=== PATIENT | male | born 1980 | race Caucasian/White ===

== ENCOUNTER 2018-03-01 16:41 | Emergency (ER) | payer OTHER ==
--- NOTE | 2018-03-01 16:50 | PDOC ---
Rapid Medical Evaluation Chief Complaint: Pain Time Seen by Provider: 03/01/18 16:44 Medical Evaluation: Allergies Allergy/AdvReac Type Severity Reaction Status Date / Time No Known Allergies Allergy Unverified 02/11/14 10:18 03/01/18 16:45 I have performed a brief in-person evaluation of this patient. The patient presents with a chief complaint of: fevers x 5 days, NIDDM and rash - not taking meds x 4-5 days, has not checked BS as ranout of strips Pertinent physical exam findings: mult discrete lesions over all of body. Pale/ cobb appears malaisic I have ordered the following: CBC, Cmp, Acetone, The patient will proceed to the ED for further evaluation. 03/01/18 16:50 03/01/18 16:51
[2018-03-01 16:51] VITALS: BP 108/66; PULSE 86; TEMP 99.6; BMI 28.1
--- NOTE | 2018-03-01 17:32 | PDOC ---
Attending Attestation - Resident Resident Name: Milagro Hunter - ED Attending Attestation I have performed the following: I have examined & evaluated the patient, The case was reviewed & discussed with the resident, I agree w/resident's findings & plan, Exceptions are as noted - HPI HPI: 03/01/18 17:47 37y M hx of IDDM presents with subjective fever for several days followed by a vesicular itchy rash the pst 2 days. Sister recently dx with zoster. Pt notes he never had vaccinations for chicken pox and never hd chicken pox itself. pt denies any headache, dizziness, n/v, back pain, neck pain, cp. pt does endorse epigastric burning after eating fatty and greasy foods for several weeks. denies sob, and pain is non exertional. - Physicial Exam PE: 03/01/18 18:19 GENERAL: The patient is awake, alert, and fully oriented, Nontoxic - in no acute distress. HEAD: Normocephalic, atraumatic. EYES: extraocular movements intact, sclera anicteric, conjunctiva clear. ENT: Normal voice, Moist mucous membranes. NECK: Normal range of motion, supple LUNGS: Breath sounds equal, clear to auscultation bilaterally. No wheezes, no rhonchi, no rales. HEART: Regular rate and rhythm, normal S1 and S2 without murmur, rub or gallop. ABDOMEN: Soft, nontender, normoactive bowel sounds. No guarding, no rebound. . No CVA tenderness EXTREMITIES: Normal range of motion, no edema. No clubbing or cyanosis. No cords, erythema, or tenderness. NEUROLOGICAL: No facial assymetry, Normal speech, PSYCH: Normal mood, normal affect. SKIN: Warm, Dry, normal turgor, multiple erythemsou lesions/excorations, a few intact vesicular lesions on erythemaous base - Medical Decision Making 03/01/18 18:20 suspect his rash is chicken pox will terat supportively no signs of encephalopathy or meningitus no , infirm or elderly people at home, there is a child who has recived their vaccinations. suspect his epgiastric pain is gerd - will give protonix, made some dietary [id number] will obtain ekg to screen for acs, although does not seem consistent Heart Score/ECG Review - ECG Impressions Comment:: 03/01/18 18:20 Twelve-lead EKG was performed and reviewed by me. There is normal sinus rhythm with a normal rate. The axis is normal. The intervals are normal. There is normal R wave progression There are no ST or T wave abnormalities. Impression: Normal twelve-lead EKG
[2018-03-01] MEDS ORDERED: diphenhydrAMINE HCL 25 MG CAPSULE (FP) PO ONE ×2 (17:35→17:50)
[2018-03-01] MEDS ORDERED: PANTOPRAZOLE 40 MG TABLET (FP) PO ONE (17:36)
--- NOTE | 2018-03-01 17:43 | PDOC ---
History of Present Illness - General Chief Complaint: Pain Stated Complaint: STOMACH PAIN/FEVER Time Seen by Provider: 03/01/18 16:44 History Source: Patient Exam Limitations: No Limitations - History of Present Illness Initial Comments: 03/01/18 17:38 This is a 37 year old male with a a history of DMII, back pain, who presents with reported fever at home for three days and diffuse, pruritic body rash since yesterday. Rash spares palms and soles. Vesicles, in different stages of healing. Patient also endorses non radiating, burning mid epigastric pain, worse with spicy foods for the past two weeks. Denies chest pain, sob, cough, sputum production, n, v, d, leg swelling. Patient states that his sister has the same symptoms with rash and was diagnosed here at [facility] with varicella. He has never had chicken pox nor has been vaccinated for virus. 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 03/01/18 17:52 Past History - Past Medical History Allergies/Adverse Reactions: Allergies Allergy/AdvReac Type Severity Reaction Status Date / Time No Known Allergies Allergy Unverified 03/01/18 16:51 Home Medications: Ambulatory Orders NK [No Known Home Medication] 03/01/18 COPD: No Diabetes: Yes - Suicide/Smoking/Psychosocial Hx Smoking History: Never smoked Information on smoking cessation initiated: No Hx Alcohol Use: No Drug/Substance Use Hx: No Substance Use Type: None Review of Systems - Review of Systems Able to Perform ROS?: Yes Is the patient limited Kazakh proficient: No Constitutional: Yes: Chills, Fever. No: Malaise, Night Sweats, Weakness, Weight Stable HEENTM: No: Blurred Vision, Tearing, Nose Congestion, Throat Pain Respiratory: No: Cough, Shortness of Breath, SOB with Exertion, Wheezing Cardiac (ROS): No: Chest Pain, Edema, Lightheadedness, Palpitations ABD/GI: Yes: Other (mid episgastric pain worse with spicy foods). No: Constipated, Diarrhea, Difficulty Swallowing, Nausea : No: Burning, Dysuria Musculoskeletal: Yes: Back Pain (chronic) Integumentary: Yes: Pruritus (all over body sparing palms and soles), Rash Neurological: No: Headache, Numbness, Paresthesia *Physical Exam - Vital Signs Last Vital Signs Temp Pulse Resp BP Pulse Ox 99.6 F 86 19 108/66 100 03/01/18 16:49 03/01/18 16:49 03/01/18 16:49 03/01/18 16:49 03/01/18 16:49 - Physical Exam General Appearance: Yes: Appropriately Dressed HEENT: negative: Pharyngeal Erythema, Nasal Congestion, Sinus Tenderness Respiratory/Chest: positive: Lungs Clear, Normal Breath Sounds Cardiovascular: positive: Regular Rhythm, Regular Rate, S1, S2 Gastrointestinal/Abdominal: positive: Normal Bowel Sounds, Soft, Other (mid epigastric pain, worse with palpation) Musculoskeletal: positive: Normal Inspection, CVA Tenderness Extremity: positive: Normal Inspection Integumentary: positive: Normal Color, Rash (diffuse body rash; unruptured vesical on arm ; open sores; some crusted lesions) 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 Sister with same rash, diagnosed with varicella. #varicella zoster: -tyelenol for fever; -supportive therapy -Benadryl for pruritis -explained to stay away from children, babies, elderly, immuno comp patients #burning epigastric pain: -po protonix -ecg r/o acute cardiac pathology 03/01/18 18:12 -ecg NSR; no st-t wave changes will dc home with contact precautions; instructions to avoid high acid foods, follow up with primary *DC/Admit/Observation/Transfer Diagnosis at time of Disposition: Chicken pox Qualifiers: Varicella complications: without complication Qualified Code(s): B01.9 - Varicella without complication - Discharge Dispostion Disposition: HOME Condition at time of disposition: Fair Decision to Admit order: No - Referrals - Patient Instructions Additional Instructions: Mr. Warren, you have been diagnosed with chicken pox, this is a virus. Treatment is supportive therapy, including hydration, Tylenol for fever/pain. Please stay away from babies, small children, elderly. Your stomach pain is most likely related to stomach acid production. You can take over the counter ant acids and follow up with your primary physician. If you experience any worsening of symptoms, please return to the emergency room. - Post Discharge Activity
[2018-03-01] MEDS ORDERED: PANTOPRAZOLE 40 MG TABLET (FP) ONE (17:50)
--- NOTE | 2018-03-02 07:41 | EKG ---
Test Reason : Blood Pressure : / mmHG Vent. Rate : 083 BPM Atrial Rate : 083 BPM P-R Int : 128 ms QRS Dur : 074 ms QT Int : 392 ms P-R-T Axes : 030 026 027 degrees QTc Int : 460 ms POOR DATA QUALITY, INTERPRETATION MAY BE ADVERSELY AFFECTED NORMAL SINUS RHYTHM NORMAL ECG NO PREVIOUS ECGS AVAILABLE Confirmed by FAYE HENDRICKSON MD ([id number]) on 03/02/2018 7:41:36 AM Referred By: Confirmed By:FAYE HENDRICKSON MD
== END 2018-03-01 18:22 | disposition home or self-care (01) ==
LOC: JER 16:41
DX: B01.9 Varicella without complication (principal); E11.9 Type 2 diabetes mellitus without complications; Z79.4 Long term (current) use of insulin; Z79.84 Long term (current) use of oral hypoglycemic drugs; Z91.14 Patient's other noncompliance with medication regimen
CPT/HCPCS: 93005; 93010; 99284-25

== ENCOUNTER 2018-03-01 23:11 | Inpatient (IN) | payer SELFPAY ==
[2018-03-02] MEDS ORDERED: SODIUM CHLORIDE 1,000 ML IV ONE (00:22)
[2018-03-02] MEDS ORDERED: ACETAMINOPHEN 325 MG TABLET (FP) PO ONE ×2 (00:22→02:57)
[2018-03-02] MEDS ORDERED: MAG HYDROX/AL HYDROX/SIMETH -MYLANTA- ORAL SUSPENSION PO ONE (00:22)
[2018-03-02] MEDS ORDERED: FAMOTIDINE 20 MG/50 ML IVPB 20 MG in PREMIX 50 IVPB ONE (00:22)
--- NOTE | 2018-03-02 00:50 | PDOC ---
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 Mentions having diffuse pruritic rash along body x 2 days. Also mentions having burning along upper abdomen for a few days, not associated with food. Denies recent travel, sick contacts, use of new meds/food/products, URI sxs, n/v/d, urinary complaints, weakness of extremities , numbness. States he returned as the fever did not go away and he still had the headache; feels like he needs something via IV to make his symptoms better. 03/02/18 00:44 Past History - Past Medical History Allergies/Adverse Reactions: Allergies Allergy/AdvReac Type Severity Reaction Status Date / Time No Known Allergies Allergy Unverified 03/01/18 23:20 Home Medications: Ambulatory Orders NK [No Known Home Medication] 03/01/18 COPD: No Diabetes: Yes - Suicide/Smoking/Psychosocial Hx Smoking History: Never smoked Hx Alcohol Use: No Drug/Substance Use Hx: No Substance Use Type: None Review of Systems - Review of Systems Comments:: See HPI 03/02/18 00:47 *Physical Exam - Vital Signs Last Vital Signs Temp Pulse Resp BP Pulse Ox 100.8 F H 118 H 18 113/77 99 03/01/18 23:19 03/01/18 23:19 03/01/18 23:19 03/01/18 23:19 03/01/18 23:19 - Physical Exam General Appearance: No: Apparent Distress HEENT: positive: Normal ENT Inspection, Normal Voice, Other (No oropharyngeal erythema, no exudates noted) Neck: positive: Supple. negative: Rigid Respiratory/Chest: positive: Lungs Clear, Normal Breath Sounds. negative: Respiratory Distress Cardiovascular: positive: Regular Rhythm, Regular Rate, S1, S2 Gastrointestinal/Abdominal: positive: Normal Bowel Sounds, Soft. 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 Unlikely meningitis given PE findings. No concern for PNA, strep throat or UTI either. Unclear cause of burning along upper abdomen; could possibly be gastritis. Given second visit, will get CBC, CMP, lipase to check liver enzymes and evaluate for pancreatitis. Will give 1 L IVF, Pepcid, Maalox, Tylenol and reassess 03/02/18 00:51 Abnormal Lab Results 03/02/18 03/02/18 00:42 00:42 WBC 2.8 L RBC 3.63 L Hgb 8.9 L Hct 27.8 L MCV 76.8 L MCH 24.5 L MCHC 31.9 L RDW 17.3 H Plt Count 37 L Monocytes % 18.2 H Sodium 134 L Random Glucose 394 H* Calcium 7.6 L Total Bilirubin 1.2 H AST 49 H Alkaline Phosphatase 135 H Albumin 3.2 L Lipase 449 H Labs show pancytopenia; no prior labs to trend to; possibly related to patient' s varicella infection? Also noted with elevated glucose of 394; patient states he has not picked up the refill for his diabetic meds over the past week (takes PO meds, is unclear of the name of med) When patient was reassessed, he states feeling better; states headache is better and abdominal pain is also better after meds given Given thrombocytopenia, CT head was done with no acute findings noted; only notable for chronic L mastoiditis Given abnormal labs, will admit patient as observation for further monitoring 03/02/18 03:26 *DC/Admit/Observation/Transfer Diagnosis at time of Disposition: Chicken pox Qualifiers: Varicella complications: without complication Qualified Code(s): B01.9 - Varicella without complication - Discharge Dispostion Condition at time of disposition: Stable Decision to Admit order: Yes - Referrals - Patient Instructions - Post Discharge Activity
[2018-03-02 00:54] LABS: BASO % 0.5 % (0-2.0); EOS % 0.2 % (0-4.5); HEMATOCRIT 27.8 % (35.4-49); HEMOGLOBIN 8.9 GM/dL (11.7-16.9); LYMPH % 14.5 % (8-40); MCH 24.5 pg (25.7-33.7); MCHC 31.9 g/dl (32.0-35.9); MEAN CELL VOLUME 76.8 fl (80-96); MEAN PLT VOLUME 9.4 fl (7.5-11.1); MONO % 18.2 % (3.8-10.2); NEUT % 66.6 % (42.8-82.8); RBC 3.63 M/mm3 (4.00-5.60); RDW 17.3 % (11.9-15.9)
[2018-03-02] MEDS ORDERED: ACETAMINOPHEN 325 MG TABLET (FP) ONE ×3 (00:55→13:22)
[2018-03-02] MEDS ORDERED: FAMOTIDINE 20 MG/50 ML IVPB 20 MG/50 ML MG IVPB ONE (00:55)
[2018-03-02] MEDS ORDERED: MAG HYDROX/AL HYDROX/SIMETH 30 ML UNIT-DOSE CUP ONE (00:55)
--- NOTE | 2018-03-02 01:09 | PDOC ---
*Physical Exam - Vital Signs Last Vital Signs Temp Pulse Resp BP Pulse Ox 100.8 F H 118 H 18 113/77 99 03/01/18 23:19 03/01/18 23:19 03/01/18 23:19 03/01/18 23:19 03/01/18 23:19 ED Treatment Course - LABORATORY CBC & Chemistry Diagram: 03/08/18 08:22 03/08/18 08:22 Medical Decision Making - Medical Decision Making 03/02/18 01:08 The pt is a 37y M n opmhx, was seen earlier in the evening and dx with chicken pox and gastritis returns for fever and mild headcahe. no neck pain, focal neuro complaints, nausea/vomiting on exam no distress no signs of meningismus suspect sypmtoms secondar to his fever will treat with antibyretic will ck labs lipsae to r/o pancreatitis will give fluids for symptomatic relief will reassess anticipate dc with pmd fu if labs unremarkable The patient was seen and evaluated in conjunction with ELISA Alexandre under my direct supervision, ancillary studies were reviewed. I independently interviewed and evaluated the patient and I agree with the plan as outlined by ELISA Alexandre. 03/02/18 01:34 The patient's CBC is noted for some pancytopenia with leukopenia, anemia, thrombocytopenia - suspect this is secondary to viral syndrome/ varicella, but consider possibility pt was pancytopenic putting him at an immunocompromised state - as the patient was complaining of a headache will obtain CT to rule out ICH due to the patients thrombocytopenia 03/02/18 02:[address], will obs pt to trend lab work and ID eval *DC/Admit/Observation/Transfer Diagnosis at time of Disposition: Pancytopenia Chicken pox Qualifiers: Varicella complications: without complication Qualified Code(s): B01.9 - Varicella without complication - Discharge Dispostion Condition at time of disposition: Stable - Referrals - Patient Instructions - Post Discharge Activity
[2018-03-02 01:34] LABS: ALBUMIN 3.2 g/dl (3.4-5.0); ALK PHOS 135 U/L (45-117); ANION GAP 9 MMOL/L (8-16); BILIRUBIN,TOTAL 1.2 mg/dL (0.2-1); BLOOD UREA NITROGEN 13 mg/dL (7-18); CALCIUM 7.6 mg/dL (8.5-10.1); CHLORIDE 101 mmol/L (98-107); CO2 24 mmol/L (21-32); CREATININE 1.1 mg/dL (0.55-1.3); LIPASE 449 U/L (73-393); POTASSIUM 4.3 mmol/L (3.5-5.1); SGOT/AST 49 U/L (15-37); SGPT/ALT 48 U/L (13-61); SODIUM 134 mmol/L (136-145); TOT PROT 6.8 g/dl (6.4-8.2)
[2018-03-02 01:35] LABS: GLUCOSE,RANDOM 394 mg/dL (74-106)
[2018-03-02 01:38] LABS: PLATELET COUNT 37 K/MM3 (134-434); WHITE BLOOD COUNT 2.8 K/mm3 (4.0-10.0)
[2018-03-02] MEDS ORDERED: INSULIN REGULAR HUMAN 100 UNITS/ML *VIAL IVPUSH ONE (02:57)
[2018-03-02] MEDS ORDERED: INSULIN REGULAR HUMAN 100 UNITS/ML *VIAL ONE (03:02)
--- NOTE | 2018-03-02 03:38 | PN ---
Teaching Attending Note Name of Resident: Jabari Keys ATTENDING PHYSICIAN STATEMENT I saw and evaluated the patient. I reviewed the resident's note and discussed the case with the resident. I agree with the resident's findings and plan as documented. SUBJECTIVE: Patient is a 37 year old man with a a history of NIDDM, back pain, who presents with reported fever at home for three days and diffuse, pruritic body rash since yesterday. Rash spares palms and soles. Vesicles, in different stages of healing. He was in the ER earlier today and was discharged. Returned because his fever was persistent. Patient also endorses non radiating, burning mid epigastric pain, worse with spicy foods for the past two weeks. Patient states that his sister has the same symptoms with rash and was diagnosed here at [facility] with varicella. He has never had chicken pox nor has been vaccinated for virus. 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 Normocephalic, atraumatic. External ears are normal and hearing is grossly intact. No nasal discharge. Neck: Supple, nontender. No palpable adenopathy or thyromegaly. No JVD Chest: Good effort. Clear to auscultation and percussion. Heart: Regular. No S3, rub or murmur Abdomen: Not distended, soft, nontender and no HSM. No rebound or guarding. Normoactive bowel sounds. Ext: Peripheral pulses intact. No leg edema. Skin: Warm and dry. Vesicular erythematous rash on trunk and limbs. Neuro: Alert. Oriented x3. CN 2-12 grossly intact. Sensation grossly intact in all four extremities and DTR are symmetric. Home Medications Medication Instructions Recorded NK [No Known Home Medication] 03/01/18 Abnormal Lab Results 03/02/18 03/02/18 00:42 00:42 WBC 2.8 L RBC 3.63 L Hgb 8.9 L Hct 27.8 L MCV 76.8 L MCH 24.5 L MCHC 31.9 L RDW 17.3 H Plt Count 37 L Monocytes % 18.2 H Sodium 134 L Random Glucose 394 H* Calcium 7.6 L Total Bilirubin 1.2 H AST 49 H Alkaline Phosphatase 135 H Albumin 3.2 L Lipase 449 H ASSESSMENT AND PLAN: 1. Chicken Pox - Patient has pancytopenia likely due to bone marrow suppression from varicella. Will do CXR, sepsis work up, get upper abdominal sonogram and UA. ID consulted. Will treat with IV acyclovir, benadryl, IV NS at 150 ml/hour and protonix. In view of the leukopenia, will treat patient with broad spectrum antibiotics vancomycin and zosyn - pending blood culture result. Consult hematology. Place on contact and airborne isolation. Trend LFTs and Lipase. 2. DM - Will hold the home diabetes drugs and implement sliding scale insulin regimen. Provide comprehensive diabetes care with patient teaching and counseling about the importance of euglycemia, eye care and foot care. 3. DVT prophylaxis - Early ambulation. Too risky to use heparin or SCD. 4. Advance directives - Full code
[2018-03-02] MEDS ORDERED: SODIUM CHLORIDE 1,000 ML IV SCH ×2 (04:15→04:30)
--- NOTE | 2018-03-02 04:19 | HP ---
CHIEF COMPLAINT: Rash, fever, headache PCP: Patient unable to state HISTORY OF PRESENT ILLNESS: Patient is a 37 year old male with history of diabetes mellitus presents with complaint of pruritic vesicular rash for the past two days. Before the rash, patient states he experienced subjective fevers that began the day prior. Patient endorses the vesicles stated one day after the fever. Described as 1- 3mm vesicles with clear fluid that began on back, and progressed to his head and b/l arms. Patient admits scratching the vesicles, due to profuse pruritus. He has never had these symptoms in the past. Patient recalls that he received some immunizations, however unsure if he received varicella vaccination. He denies history of varicella infection. Admits sick contact with his sister who had varicella infection approx. two weeks ago, and he had visited her at that time. Admits subjective fevers. Denies chills, cough, shortness of breath, chest pain, palpitations, abdominal pain, nausea, vomiting, diarrhea, constipation. Unclear if patient is taking steroids, as he does not know his home medications. ER course was notable for: (1) CT head negative for intracranial hemorrhage (2) IV normal saline 1L, pepcid, maalox, tylenol (3) Recent Travel: denies PAST MEDICAL HISTORY: diabetes mellitus PAST SURGICAL HISTORY: denies Social History: Smoking: Former smoker, quit 8 years ago. Smoked 1-2 cigarettes a day for two years. Alcohol: admits 4-5 beers on weekends. Drugs: denies Family History: Father: DM. at 65 y/o due to diabetes complications Mother: HTN Allergies No Known Allergies Allergy (Unverified 03/01/18 23:20) HOME MEDICATIONS: Home Medications Medication Instructions Recorded NK [No Known Home Medication] 03/01/18 REVIEW OF SYSTEMS CONSTITUTIONAL: Admits: fever. Absent: chills, diaphoresis, generalized weakness, malaise, loss of appetite, weight change HEENT: Absent: rhinorrhea, nasal congestion, throat pain, throat swelling, difficulty swallowing, mouth swelling, ear pain, eye pain, visual changes CARDIOVASCULAR: Absent: chest pain, syncope, palpitations, irregular heart rate, lightheadedness , peripheral edema RESPIRATORY: Absent: cough, shortness of breath, dyspnea with exertion, orthopnea, wheezing, stridor, hemoptysis GASTROINTESTINAL: Absent: abdominal pain, abdominal distension, nausea, vomiting, diarrhea, constipation, melena, hematochezia GENITOURINARY: Absent: dysuria, frequency, urgency, hesitancy, hematuria, flank pain, genital pain MUSCULOSKELETAL: Absent: myalgia, arthralgia, joint swelling, back pain, neck pain SKIN: Admits: vesicular rash, pruritis. Absent: pallor HEMATOLOGIC/IMMUNOLOGIC: Absent: easy bleeding, easy bruising, lymphadenopathy, frequent infections ENDOCRINE: Absent: unexplained weight gain, unexplained weight loss, heat intolerance, cold intolerance NEUROLOGIC: Admits: headache. Absent: focal weakness or paresthesias, dizziness, unsteady gait, seizure, mental status changes, bladder or bowel incontinence PSYCHIATRIC: Absent: anxiety, depression, suicidal or homicidal ideation, hallucinations. PHYSICAL EXAMINATION Vital Signs - 24 hr 03/01/18 03/02/18 23:19 02:56 Temperature 100.8 F H 101.4 F H Pulse Rate 118 H Pulse Rate [ 97 H Right Radial] Respiratory 18 18 Rate Blood Pressure 113/77 Blood Pressure 103/59 L [Right Arm] O2 Sat by Pulse 99 97 Oximetry (%) GENERAL: Awake, alert, and fully oriented, in no acute distress. HEAD: Normal with no signs of trauma. EYES: Pupils equal, round and reactive to light, extraocular movements intact, sclera anicteric, conjunctiva clear. No lid lag. EARS, NOSE, THROAT: Ears normal, nares patent, oropharynx clear without exudates. Moist mucous membranes. No vesicles noted within oropharynx. NECK: Normal range of motion, supple without lymphadenopathy, JVD, or masses. LUNGS: Breath sounds equal, clear to auscultation bilaterally. No wheezes, and no crackles. No accessory muscle use. HEART: Regular rate and rhythm, normal S1 and S2 without murmur, rub or gallop. ABDOMEN: Soft, nontender, not distended, normoactive bowel sounds, no guarding, no rebound, no masses. No hepatomegaly or splenomegaly. MUSCULOSKELETAL: Normal range of motion at all joints. No bony deformities or tenderness. No CVA tenderness. UPPER EXTREMITIES: 2+ radial pulses b/l, warm, well-perfused. LOWER EXTREMITIES: 2+ dorsalis pedis pulses b/l, warm, well-perfused. No calf tenderness. No peripheral edema. NEUROLOGICAL: Cranial nerves II-XII intact. Normal speech. Negative kernig's sign, negative brudinski's sign. PSYCHIATRIC: Cooperative. Good eye contact. Appropriate mood and affect. SKIN: Warm, dry. Numerous vesicles 2-4mm with erythematous base, filled with clear fluid. At different stages of healing, some are excoriated. Noted at face , neck, back, b/l arms, anterior aspect b/l legs. Sparing palms and soles b/l. Laboratory Results - last 24 hr 03/02/18 03/02/18 00:42 00:42 WBC 2.8 L RBC 3.63 L Hgb 8.9 L Hct 27.8 L MCV 76.8 L MCH 24.5 L MCHC 31.9 L RDW 17.3 H Plt Count 37 L MPV 9.4 Absolute Neuts (auto) 1.9 Neutrophils % 66.6 Lymphocytes % 14.5 Monocytes % 18.2 H Eosinophils % 0.2 Basophils % 0.5 Nucleated RBC % 0 Sodium 134 L Potassium 4.3 Chloride 101 Carbon Dioxide 24 Anion Gap 9 BUN 13 Creatinine 1.1 Creat Clearance w eGFR > 60 Random Glucose 394 H* Calcium 7.6 L Total Bilirubin 1.2 H AST 49 H ALT 48 Alkaline Phosphatase 135 H Total Protein 6.8 Albumin 3.2 L Lipase 449 H ASSESSMENT/PLAN: Patient is a 37 year old male with history of diabetes mellitus presents with complaint of pruritic vesicular rash for the past two days. Vesicular rash -Likely secondary to varicella as patient denies prior history of infection, or vaccination. Admits sick contact with varicella two weeks ago. -ID consulted (Dr. James). Recommended Acyclovir, in addition to antibiotic coverage. After discussion with Dr. Reeder, will begin broad coverage with Vancomycin, Zosyn until cultures result. -Acyclovir 800mg IV TID -Vancomycin 1000mg IV BID -Zosyn 4.5 grams Q6H -Benadryl 25mg PO Q6H -Pain control with Tylenol 650mg PO Q6H PRN -F/U chest x-ray -F/U blood cultures -F/U urine cultures Polycythemia -Unclear if secondary to viral process -F/U abdominal ultrasound to rule out hypersplenism -F/U hematology consult (Dr. Mata) Diabetes -Patient will need medicine reconciliation of oral hypoglycemics. -Insulin sliding scale ACHS -Blood glucose monitoring ACHS -F/U HbA1c FEN -IV normal saline at 150mL/ hour -Hyponatremia. Patient receiving normal saline. Will follow CMP -Diabetic diet Prophylaxis -Encourage early ambulation. Will withhold Heparin as patient is thrombocytopenic, and SCDs as they may cause microvascular rupture -Pantoprazole 40mg PO daily Contact and Airborne precautions. Disposition -Admit to medical surgical floor Visit type - Emergency Visit Emergency Visit: Yes ED Registration Date: 03/02/18 Care time: The patient presented to the Emergency Department on the above date and was hospitalized for further evaluation of their emergent condition. - New Patient This patient is new to me today: Yes Date on this admission: 03/02/18 - Critical Care Critical Care patient: No
[2018-03-02] MEDS ORDERED: diphenhydrAMINE HCL 25 MG CAPSULE (FP) PO PRN (04:31)
[2018-03-02] MEDS ORDERED: VANCOMYCIN 1 GRAM (PRE-DOCKED) 1,000 MG/250 ML BAG IVPB ONE ×2 (06:00→07:54)
[2018-03-02] MEDS: PIPERACILLIN/TAZOB 4.5 GM 4.5 GM in DEXTROSE 5%-WATER 100 ML IVPB SCH ×4 (06:00→22:14)
[2018-03-02 06:05] LABS: URINE APPEARANCE CLEAR; URINE BILIRUBIN NEGATIVE (<2.0 mg/dL); URINE COLOR YELLOW; URINE GLUCOSE (UA) 3+ (NEGATIVE); URINE KETONE NEGATIVE (NEGATIVE); URINE LEUK ESTERASE NEGATIVE (NEGATIVE); URINE NITRITE NEGATIVE (NEGATIVE); URINE PROTEIN NEGATIVE (NEGATIVE)
[2018-03-02] MEDS ORDERED: PIPERACILLIN/TAZOB 4.5 GM 4.5 GM/100 ML BAG IVPB ONE ×3 (06:32→22:12)
[2018-03-02 06:34] LABS: BASO % 0.8 % (0-2.0); EOS % 0.1 % (0-4.5); HEMATOCRIT 26.7 % (35.4-49); HEMOGLOBIN 8.4 GM/dL (11.7-16.9); LYMPH % 17.8 % (8-40); MCH 23.9 pg (25.7-33.7); MCHC 31.3 g/dl (32.0-35.9); MEAN CELL VOLUME 76.6 fl (80-96); MEAN PLT VOLUME 10.3 fl (7.5-11.1); MONO % 19.1 % (3.8-10.2); NEUT % 62.2 % (42.8-82.8); RBC 3.49 M/mm3 (4.00-5.60); RDW 17.5 % (11.9-15.9); WHITE BLOOD COUNT 3.2 K/mm3 (4.0-10.0)
[2018-03-02] MEDS: ACYCLOVIR INJECTION 800 MG in DEXTROSE 5%-WATER - 250 ML IVPB SCH ×3 (07:06→23:25)
[2018-03-02 07:11] LABS: MAGNESIUM 1.8 mg/dL (1.8-2.4)
[2018-03-02] MEDS: INSULIN SLIDING SCALE (NOVOLOG) 1 VIAL SQ SCH ×4 (08:00→22:10)
[2018-03-02] MEDS ORDERED: INSULIN (NOVOLOG) ASPART 100 UNITS/ML 10ML VIAL ONE ×3 (08:02→17:28)
[2018-03-02] MEDS ORDERED: PANTOPRAZOLE 40 MG TABLET (FP) PO SCH (10:00)
[2018-03-02] MEDS ORDERED: PANTOPRAZOLE 40 MG TABLET (FP) ONE (10:18)
--- NOTE | 2018-03-02 10:54 | CON.ID ---
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 came to [facility] yesterday evening with fever/rash and abdominal pain and was discharged home, returned later that night with fever and headache labs notable for leukopenia, anemia and thrombocytopenia elevated lipase spoke with ER PA and residential treatment staff early this am around 4- advised isolation contact/airborne, ivf and iv acyclovir, cultures , rocephin, HIV testing - History Source History Provided By: Patient, Medical Record Limitations to Obtaining History: Language Barrier - Past Medical History Endocrine: Yes: Diabetes Mellitus - Alcohol/Substance Use Hx Alcohol Use: No - Smoking History Smoking history: Never smoked - Social History Usual Living Arrangement: With Spouse ADL: Independent 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 denies: Difficult Swallowing Neck: reports: No Symptoms Cardiovascular: reports: No Symptoms. denies: Chest Pain Respiratory: denies: Cough, SOB Gastrointestinal: reports: Abdominal Pain (midepigastric). denies: Nausea, Vomiting Genitourinary: reports: No Symptoms Physical Exam Vital Signs: Vital Signs Temperature 101.4 F H 03/02/18 02:56 Pulse Rate 97 H 03/02/18 02:56 Respiratory Rate 18 03/02/18 02:56 Blood Pressure 103/59 L 03/02/18 02:56 O2 Sat by Pulse Oximetry (%) 97 03/02/18 04:18 Constitutional: Yes: Well Nourished, No Distress, Calm Eyes: Yes: Conjunctiva Clear, EOM Intact HENT: Yes: Atraumatic, Normocephalic. No: Pharyngeal Erythema, Thrush Neck: Yes: Supple, Trachea Midline. No: Decreased ROM Cardiovascular: Yes: Regular Rate and Rhythm Respiratory: Yes: Regular, CTA Bilaterally Gastrointestinal: Yes: Normal Bowel Sounds, Soft, Tenderness, Epigastrium ...Rectal Exam: Yes: Deferred Extremities: Yes: WNL Edema: No Neurological: Yes: Alert, Oriented Labs: CBC, BMP 03/02/18 06:00 03/02/18 00:42 Laboratory Tests 03/02/18 00:42 Total Bilirubin 1.2 H AST 49 H ALT 48 Alkaline Phosphatase 135 H Total Protein 6.8 Albumin 3.2 L Lipase 449 H Imaging - Results Chest X-ray: Report Reviewed, Image Reviewed Problem List - Problems (1) Chicken pox Code(s): B01.9 - VARICELLA WITHOUT COMPLICATION Qualifiers: Varicella complications: without complication Qualified Code(s): B01.9 - Varicella without complication (2) Pancytopenia Code(s): D61.818 - OTHER PANCYTOPENIA (3) Pancreatitis Code(s): K85.90 - ACUTE PANCREATITIS WITHOUT NECROSIS OR INFECTION, UNSP Assessment/Plan strict isolation- contact and airborne continue ivf and acyclovir suspect pancytopenia and pancreatitis are on the basis of varicella ?ITP with varicella would continue zosyn for now pending blood cultures HIV negative consider GI evaluation-abnormal ultrasound-not sure of the significance
[2018-03-02 12:33] LABS: ANISOCYTOSIS 2+; MACROCYTOSIS 0; OVALOCYTE 1+; PLATELET ESTIMATE DECREASED
[2018-03-02 12:37] LABS: PLATELET COUNT 31 K/MM3 (134-434)
[2018-03-02] MEDS ORDERED: PIPERACILLIN/TAZOB 4.5 GM 4.5 GM in DEXTROSE 5%-WATER 100 ML IVPB SCH (15:00)
--- NOTE | 2018-03-02 16:18 | PN ---
Progress Note, Physician Chief Complaint: Mr Warren complains of pain in his abdomen. No cp, sob, n/v. - Current Medication List Current Medications: Active Medications Acetaminophen (Tylenol -) 650 mg PO Q6H PRN PRN Reason: FEVER OR PAIN LEVEL 1-5 Diphenhydramine HCl (Benadryl -) 25 mg PO Q6H PRN PRN Reason: FOR ITCHING Sodium Chloride (Normal Saline -) 1,000 mls @ 150 mls/hr IV ASDIR [facility] Last Admin: 03/02/18 05:30 Dose: 150 mls/hr Acyclovir 800 mg/ Dextrose 266 mls @ 177.333 mls/hr IVPB TID [facility] Last Admin: 03/02/18 14:54 Dose: 177.333 mls/hr Piperacillin Sod/Tazobactam (Sod 4.5 gm/ Dextrose) 100 mls @ 200 mls/hr IVPB Q8H [facility]; Protocol Last Admin: 03/02/18 14:51 Dose: Not Given Insulin Aspart (Novolog Vial Sliding Scale -) 1 vial SQ ACHS [facility]; Protocol Last Admin: 03/02/18 12:37 Dose: 8 unit Pantoprazole Sodium (Protonix -) 40 mg PO DAILY [facility] Last Admin: 03/02/18 10:23 Dose: 40 mg - Objective Vital Signs: Vital Signs Temperature 38.4 C H 03/02/18 13:24 Pulse Rate 97 H 03/02/18 13:24 Respiratory Rate 18 03/02/18 10:56 Blood Pressure 124/61 03/02/18 13:24 O2 Sat by Pulse Oximetry (%) 100 03/02/18 13:24 Constitutional: Yes: No Distress, Calm, Obese Cardiovascular: Yes: Regular Rate and Rhythm. No: Gallop, Murmur, Rub Respiratory: Yes: Regular, CTA Bilaterally. No: Rales, Rhonchi, Wheezes Gastrointestinal: Yes: Normal Bowel Sounds, Soft, Tenderness, Epigastrium. No: Distention Extremities: Yes: WNL Edema: No Labs: CBC, BMP 03/02/18 06:00 03/02/18 00:42 - ....Imaging Cat Scan: Report Reviewed Ultrasound: Report Reviewed Problem List - Problems (1) Chicken pox Assessment/Plan: -patient presenting with varicella -first time infection -case d/w Dr James -continue acyclovir Code(s): B01.9 - VARICELLA WITHOUT COMPLICATION Qualifiers: Varicella complications: without complication Qualified Code(s): B01.9 - Varicella without complication (2) Pancreatitis Assessment/Plan: -could be secondary to varicella -make npo -IVF -monitor for improvement -consult GI Code(s): K85.90 - ACUTE PANCREATITIS WITHOUT NECROSIS OR INFECTION, UNSP (3) Pancytopenia Assessment/Plan: -hematology consulted -? if sequestration, splenic enlargement -hematology will send blood for flow cytology Code(s): D61.818 - OTHER PANCYTOPENIA (4) Diabetes Assessment/Plan: -currently npo -however will continue SSI -Hgb 10 -will need bed bug exterminator treatment -will start oral hypoglycemics after acute issues resolved Code(s): E11.9 - TYPE 2 DIABETES MELLITUS WITHOUT COMPLICATIONS (5) Cholecystitis Assessment/Plan: -ultrasound read reviewed -consult GI -continue zosyn for possible infection Code(s): K81.9 - CHOLECYSTITIS, UNSPECIFIED
[2018-03-02] MEDS ORDERED: IBUPROFEN 400 MG TABLET (FP) PO PRN (17:32)
[2018-03-02] MEDS ORDERED: IBUPROFEN 400 MG TABLET (FP) PO ONE (17:40)
--- NOTE | 2018-03-02 17:49 | CON.GI ---
Consult Consult Specialty:: GI Referred by:: Dr. Burger Reason for Consultation:: Enlarged pancreas and thickend gallbladder on Ultrasound - History of Present Illness Chief Complaint: headache, fever, rash for 3 days History of Present Illness: 37M seen through [facility] for evaluation of fevers, chills, rash. He states that this has been going on for 3 days. He denies any sick contacts with similar complaints (yet he explained that his sister had a [address] James per ID note), recent travel. He was evaluated by ID, Dr. 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 I was asked to evaluate further as he had thickened gallbladder wall and enlarged pancreas noted on an ultrasound. It also revealed splenomegaly and fatty liver. He was noted to have fatty liver and splenomegaly on an abdominal US in 2011. At that time, his spleen was measured at 14.3 cm. He drinks 3-4 beers on some weekends and denies heavier alcohol consumption in past or present. He denies a known history of liver disease, IVDA/DA, sexual promiscuity. The current US describes his spleen as 18.4cm He describes mild upper abdominal pain. There was no nausea, vomiting. 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 (year[place] 1997 History of Recent Travel: No (last 04/09) Home Medications - Allergies Allergies/Adverse Reactions: Allergies Allergy/AdvReac Type Severity Reaction Status Date / Time No Known Allergies Allergy Unverified 03/01/18 23:20 - Home Medications Home Medications: Ambulatory Orders NK [No Known Home Medication] 03/01/18 Family Disease History - Family Disease History Family Disease History: Other: Father (: Unclear cause), Mother (Alive: healthy), Sister (2, healthy), Daughter (1, healthy) Other Family History: No family history of liver disease, colorectal cancer Review of Systems - Review of Systems Constitutional: reports: Fever, Lethargy, Malaise, Night Sweats, Weakness Eyes: reports: Eye Pain Cardiovascular: denies: Chest Pain Respiratory: denies: Cough, SOB Gastrointestinal: reports: Abdominal Pain. denies: Constipation, Diarrhea, Dysphagia, Nausea, Rectal Bleeding, Vomiting Physical Exam-GI Vital Signs: Vital Signs Temperature 100.9 F (oral) 03/02/18 16:30 Pulse Rate 94 H 03/02/18 16:30 Respiratory Rate 18 03/02/18 16:30 Blood Pressure 113/60 03/02/18 16:30 O2 Sat by Pulse Oximetry (%) 100 (RA) 03/02/18 16:30 Constitutional: Yes: Calm Eyes: No: Sclera Icterus Cardiovascular: Yes: Regular Rate and Rhythm. No: Murmur Respiratory: Yes: CTA Bilaterally Gastrointestinal Inspection: No: Distention, Scars ...Auscultate: Yes: Normoactive Bowel Sounds ...Palpate: Yes: Soft, Splenomegaly (palpable spleen edge), Tenderness (Mild TTP upper abdomen). No: Hepatomegaly ...Percussion: No: Tympanitic Edema: No (No LE edema) Integumentary: Yes: Rash Neurological: Yes: Alert Labs: CBC, BMP 03/02/18 06:00 03/02/18 00:42 Hepatic Panel Total Bilirubin 1.2 mg/dL (0.2-1) H 03/02/18 00:42 AST 49 U/L (15-37) H 03/02/18 00:42 ALT 48 U/L (13-61) 03/02/18 00:42 Alkaline Phosphatase 135 U/L (45-117) H 03/02/18 00:42 Albumin 3.2 g/dl (3.4-5.0) L 03/02/18 00:42 Problem List - Problems (1) Pancreatic abnormality Assessment/Plan: It would be strange to have current viral illness along with a totally seperate pancreatic process occurring. VZV infection can be associated with pancreatitis. I also feel as though he does not have clinical cholecystitis. Would advise: Continued IV hydration. Can be more aggressive given his age Triglycerides in AM MRI / MRCP of the abdomen with and without contrast when able Mild TTP on exam. 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 if secondary to current viral syndrome or alternate pathology predating current illness. Consider heme evaluation. Microcytic anemia suggests chronic component at least to his anemia: Check iron studies. Will need further work-up when acute issues are resolved. Has chronic splenomegaly apparently. Getting more information regarding his PMD if he has one and recent blood work for comparison would be useful. Hepatitis serologies ordered for AM. Advised complete alcohol cessation. Code(s): D61.818 - OTHER PANCYTOPENIA
[2018-03-02] MEDS ORDERED: LACTATED RINGERS SOLUTION 1,000 ML/1,000 ML INFUS.BAG IV SCH (18:15)
--- NOTE | 2018-03-02 20:46 | CONSULT ---
Consult - text type - Consultation Consultation Note: 37 y/o M hx of DM, just discharged from ED today, returns today with complaint with fever at home along with headache. Mentions having diffuse pruritic rash along body x 2 days. Also mentions having burning along upper abdomen for a few days, not associated with food. reports his sister recently had chicken pox Allergies/Adverse Reactions: Allergies Allergy/AdvReac Type Severity Reaction Status Date / Time No Known Allergies Allergy Unverified 03/01/18 23:20 Home Medications: Ambulatory Orders NK [No Known Home Medication] 03/01/18 PMH Diabetes: Yes PSH none - Suicide/Smoking/Psychosocial Hx Smoking History: Never smoked Last Vital Signs Temp Pulse Resp BP Pulse Ox 98.2 F 82 20 112/58 L 100 03/02/18 23:39 03/02/18 23:39 03/02/18 23:39 03/02/18 23:39 03/02/18 17:21 Cor: RSR, No murmurs, No gallops Lungs: Clear to P&A Abd: Soft, Normal bowel sounds, No organomegaly Ext:No significant edema A/P 37 y/o patient with DM, recent contact with siste who had chicken pox comes in with papulovesicular, diffuse rash, fever, headache Pancytopenia--suspect due to viral illness Smear shows increased monocytes, rare immature cells--? reactive thrombocytopenia due to viral infection anemia of chronic disease due to inflammation Monitor CBC
[2018-03-02] MEDS ORDERED: VANCOMYCIN 1 GRAM (PRE-DOCKED) 1,000 MG/250 ML BAG IVPB SCH (22:00)
[2018-03-02] MEDS ORDERED: ALBUTEROL SO4 2.5/IPRATROPIUM 0.5 INH SOL 3 ML VIAL.NEB. NEB ONE (22:12)
[2018-03-02 23:43] VITALS: BMI 28.5
[2018-03-03] MEDS: ACYCLOVIR INJECTION 800 MG in DEXTROSE 5%-WATER - 250 ML IVPB SCH ×3 (06:24→21:11)
[2018-03-03] MEDS: INSULIN SLIDING SCALE (NOVOLOG) 1 VIAL SQ SCH ×4 (06:30→21:12)
[2018-03-03] MEDS ORDERED: PIPERACILLIN/TAZOBACTAM 4.5 GM VIAL IVPB ONE ×3 (07:28→21:01)
[2018-03-03] MEDS ORDERED: DEXTROSE 5%-WATER 100 ML IVPB ONE ×3 (07:28→21:01)
[2018-03-03 09:22] LABS: BASO % 0.5 % (0-2.0); EOS % 0.2 % (0-4.5); HEMATOCRIT 27.3 % (35.4-49); HEMOGLOBIN 8.4 GM/dL (11.7-16.9); MCH 23.6 pg (25.7-33.7); MCHC 30.8 g/dl (32.0-35.9); MEAN CELL VOLUME 76.6 fl (80-96); MEAN PLT VOLUME 10.5 fl (7.5-11.1); MONO % 15.3 % (3.8-10.2); RBC 3.56 M/mm3 (4.00-5.60); RDW 17.5 % (11.9-15.9); WHITE BLOOD COUNT 3.4 K/mm3 (4.0-10.0)
[2018-03-03] MEDS: PIPERACILLIN/TAZOB 4.5 GM 4.5 GM in DEXTROSE 5%-WATER 100 ML IVPB SCH ×3 (09:29→21:12)
[2018-03-03 09:42] LABS: ALBUMIN 2.6 g/dl (3.4-5.0); ALK PHOS 105 U/L (45-117); ANION GAP 7 MMOL/L (8-16); BILIRUBIN,DIRECT 0.3 mg/dL (0.0-0.2); BILIRUBIN,TOTAL 0.9 mg/dL (0.2-1); BLOOD UREA NITROGEN 6 mg/dL (7-18); CALCIUM 7.5 mg/dL (8.5-10.1); CHLORIDE 104 mmol/L (98-107); CO2 26 mmol/L (21-32); CREATININE 0.8 mg/dL (0.55-1.3); GLUCOSE,RANDOM 243 mg/dL (74-106); POTASSIUM 4.1 mmol/L (3.5-5.1); SGOT/AST 36 U/L (15-37); SGPT/ALT 35 U/L (13-61); SODIUM 137 mmol/L (136-145); TRIGLYCERIDES 138 mg/dL (0-150)
--- NOTE | 2018-03-03 10:38 | PN ---
GI Progress Note Subjective: No acute events States feeling better overall No abdominal pain and states feeling hungry Denies a history of known liver disease. States having had bloodwork with his PMD 4 months ago that was "OK". He is vague about this, however. - Objective Vital Signs: Vital Signs Temperature 98.2 F 03/02/18 23:39 Pulse Rate 82 03/02/18 23:39 Respiratory Rate 20 03/02/18 23:39 Blood Pressure 112/58 L 03/02/18 23:39 O2 Sat by Pulse Oximetry (%) 100 03/02/18 23:00 Constitutional: Calm Eyes: No: Sclera Icterus Cardiovascular: Yes: Regular Rate and Rhythm Respiratory: Yes: CTA Bilaterally Gastrointestinal Inspection: No: Distention, Scars ...Auscultate: Yes: Normoactive Bowel Sounds ...Palpate: Yes: Soft, Splenomegaly. No: Hepatomegaly, Tenderness ...Percussion: No: Tympanitic Edema: No (No LE edema) Neurological: Yes: Alert Labs: CBC, BMP 03/03/18 08:00 Problem List - Problems (1) Pancreatic abnormality Assessment/Plan: Clinically improved. 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 if related to current viral infection or alternate preexisting problem. Will need further eval. Hepatitis serologies pending Code(s): D61.818 - OTHER PANCYTOPENIA
--- NOTE | 2018-03-03 10:39 | PN ---
Progress Note, Physician Chief Complaint: Mr Warren says he is feeling better. His abdominal pain has resolved. No cp, sob, n/v. - Current Medication List Current Medications: Active Medications Acetaminophen (Tylenol -) 650 mg PO Q6H PRN PRN Reason: PAIN LEVEL 1-5 Diphenhydramine HCl (Benadryl -) 25 mg PO Q6H PRN PRN Reason: FOR ITCHING Acyclovir 800 mg/ Dextrose 266 mls @ 177.333 mls/hr IVPB TID [facility] Last Admin: 03/03/18 06:24 Dose: 177.333 mls/hr Piperacillin Sod/Tazobactam (Sod 4.5 gm/ Dextrose) 100 mls @ 200 mls/hr IVPB Q8H [facility]; Protocol Last Admin: 03/03/18 09:29 Dose: 200 mls/hr Lactated Ringer's (Lactated Ringers Solution) 1,000 ml in 1,000 mls @ 200 mls/ hr IV ASDIR [facility] Last Admin: 03/02/18 18:52 Dose: 200 mls/hr Ibuprofen (Motrin -) 400 mg PO Q6H PRN PRN Reason: FEVER Last Admin: 03/02/18 17:44 Dose: 400 mg Insulin Aspart (Novolog Vial Sliding Scale -) 1 vial SQ ACHS [facility]; Protocol Last Admin: 03/03/18 06:30 Dose: 4 unit - Objective Vital Signs: Vital Signs Temperature 36.8 C 03/02/18 23:39 Pulse Rate 82 03/02/18 23:39 Respiratory Rate 20 03/02/18 23:39 Blood Pressure 112/58 L 03/02/18 23:39 O2 Sat by Pulse Oximetry (%) 100 03/02/18 23:00 Constitutional: Yes: Well Nourished, No Distress, Calm Cardiovascular: Yes: Regular Rate and Rhythm. No: Gallop, Murmur, Rub Respiratory: Yes: Regular, CTA Bilaterally. No: Rales, Rhonchi, Wheezes Gastrointestinal: Yes: Normal Bowel Sounds, Soft. No: Distention, Tenderness Extremities: Yes: WNL Edema: No Integumentary: Yes: Rash (improved) Labs: CBC, BMP 03/03/18 08:00 Problem List - Problems (1) Chicken pox Code(s): B01.9 - VARICELLA WITHOUT COMPLICATION Qualifiers: Qualified Code(s): B01.9 - Varicella without complication (2) Pancreatitis Code(s): K85.90 - ACUTE PANCREATITIS WITHOUT NECROSIS OR INFECTION, UNSP (3) Pancytopenia Code(s): D61.818 - OTHER PANCYTOPENIA (4) Diabetes Code(s): E11.9 - TYPE 2 DIABETES MELLITUS WITHOUT COMPLICATIONS (5) Cholecystitis Code(s): K81.9 - CHOLECYSTITIS, UNSPECIFIED Assessment/Plan (1) Chicken pox Assessment/Plan: -much improved today -continue acyclovir -ID following Code(s): B01.9 - VARICELLA WITHOUT COMPLICATION Qualifiers: Varicella complications: without complication Qualified Code(s): B01.9 - Varicella without complication (2) Pancreatitis Assessment/Plan: -case d/w GI -suspect secondary to varicella -tolerating clears -defer to advancing diet per GI Code(s): K85.90 - ACUTE PANCREATITIS WITHOUT NECROSIS OR INFECTION, UNSP (3) Pancytopenia Assessment/Plan: -appreciate hematology assistance -suspect reactive Code(s): D61.818 - OTHER PANCYTOPENIA (4) Diabetes Assessment/Plan: -patient taking metformin/glyburide combination -is not diet compliant -if already on 2 oral agents and Hgb A1c this high, will need insulin -suspect patient will not be compliant with insulin regimen -when diet advanced, will add third agent -will need follow up and diet education Code(s): E11.9 - TYPE 2 DIABETES MELLITUS WITHOUT COMPLICATIONS (5) Cholecystitis Assessment/Plan: -case d/w Dr Gamino -low suspicion for cholecystitis -continue zosyn per ID -MRCP ordered Code(s): K81.9 - CHOLECYSTITIS, UNSPECIFIED
[2018-03-03 10:40] LABS: PLATELET COUNT 34 K/MM3 (134-434)
[2018-03-03] MEDS ORDERED: INSULIN (NOVOLOG) ASPART 100 UNITS/ML 10ML VIAL ONE (10:49)
--- NOTE | 2018-03-03 13:18 | PN ---
Progress Note, Physician History of Present Illness: C/O pruritic rash Temps down No c/o chest pain/ dyspnea - Current Medication List Current Medications: Active Medications Acetaminophen (Tylenol -) 650 mg PO Q6H PRN PRN Reason: PAIN LEVEL 1-5 Diphenhydramine HCl (Benadryl -) 25 mg PO Q6H PRN PRN Reason: FOR ITCHING Acyclovir 800 mg/ Dextrose 266 mls @ 177.333 mls/hr IVPB [facility]ID [facility] Last Admin: 03/03/18 06:24 Dose: 177.333 mls/hr Piperacillin Sod/Tazobactam (Sod 4.5 gm/ Dextrose) 100 mls @ 200 mls/hr IVPB Q8H [facility]; Protocol Last Admin: 03/03/18 09:29 Dose: 200 mls/hr Lactated Ringer's (Lactated Ringers Solution) 1,000 ml in 1,000 mls @ 200 mls/ hr IV ASDIR [facility] Last Admin: 03/02/18 18:52 Dose: 200 mls/hr Ibuprofen (Motrin -) 400 mg PO Q6H PRN PRN Reason: FEVER Last Admin: 03/02/18 17:44 Dose: 400 mg Insulin Aspart (Novolog Vial Sliding Scale -) 1 vial SQ ACHS [facility]; Protocol Last Admin: 03/03/18 11:04 Dose: 2 unit - Objective Vital Signs: Vital Signs Temperature 98.2 F 03/02/18 23:39 Pulse Rate 82 03/02/18 23:39 Respiratory Rate 20 03/02/18 23:39 Blood Pressure 112/58 L 03/02/18 23:39 O2 Sat by Pulse Oximetry (%) 98 03/03/18 09:00 Constitutional: Yes: No Distress Eyes: Yes: Conjunctiva Clear Cardiovascular: Yes: Regular Rate and Rhythm, S1, S2 Respiratory: Yes: CTA Bilaterally Gastrointestinal: Yes: Normal Bowel Sounds, Soft. No: Tenderness Integumentary: Yes: Other (+ diffuse vesicular rash) Labs: CBC, BMP 03/03/18 08:00 03/03/18 08:00 Assessment/Plan Varicella Pancytopenia likely secondary to viral illness Pancreatitis ? secondary to varicella Continue acyclovir Zosyn Maintain isolation
[2018-03-03 14:37] LABS: ANISOCYTOSIS 1+; MACROCYTOSIS 0; PLATELET ESTIMATE DECREASED
[2018-03-03] MEDS: LACTATED RINGERS SOLUTION 1,000 ML/1,000 ML INFUS.BAG IV SCH ×2 (17:21→21:11)
[2018-03-03] MEDS ORDERED: PT OWN MED DRAWER 7, Y5N ONE (21:00)
[2018-03-03] MEDS: ACETAMINOPHEN 325 MG TABLET (FP) PO PRN (21:24)
[2018-03-04] MEDS ORDERED: PIPERACILLIN/TAZOBACTAM 4.5 GM VIAL IVPB ONE ×3 (05:47→20:31)
[2018-03-04] MEDS ORDERED: DEXTROSE 5%-WATER 200 ML IVPB ONE (05:47)
[2018-03-04] MEDS: PIPERACILLIN/TAZOB 4.5 GM 4.5 GM in DEXTROSE 5%-WATER 100 ML IVPB SCH ×3 (05:56→21:52)
[2018-03-04] MEDS: INSULIN SLIDING SCALE (NOVOLOG) 1 VIAL SQ SCH ×4 (06:00→21:52)
[2018-03-04] MEDS: ACYCLOVIR INJECTION 800 MG in DEXTROSE 5%-WATER - 250 ML IVPB SCH ×3 (06:02→21:52)
[2018-03-04 08:57] LABS: BASO % 0.9 % (0-2.0); EOS % 0.3 % (0-4.5); HEMATOCRIT 26.6 % (35.4-49); HEMOGLOBIN 8.5 GM/dL (11.7-16.9); MCH 24.5 pg (25.7-33.7); MCHC 31.8 g/dl (32.0-35.9); MEAN CELL VOLUME 76.8 fl (80-96); MEAN PLT VOLUME 9.7 fl (7.5-11.1); MONO % 14.5 % (3.8-10.2); NEUT % 52.3 % (42.8-82.8); PLATELET COUNT 41 K/MM3 (134-434); RBC 3.46 M/mm3 (4.00-5.60); RDW 17.7 % (11.9-15.9); WHITE BLOOD COUNT 2.7 K/mm3 (4.0-10.0)
[2018-03-04 09:09] LABS: INR 1.44 (0.83-1.09)
[2018-03-04 09:11] LABS: ACTIVATED PTT 33.3 SECONDS (25.2-36.5)
--- NOTE | 2018-03-04 09:14 | PN ---
GI Progress Note Subjective: sitting up eating dinner no abdominal pain - Objective Vital Signs: Vital Signs Temperature 98 F 03/04/18 07:23 Pulse Rate 78 03/04/18 07:23 Respiratory Rate 20 03/04/18 07:23 Blood Pressure 110/74 03/04/18 07:23 O2 Sat by Pulse Oximetry (%) 98 03/03/18 09:00 Constitutional: Calm Eyes: No: Sclera Icterus Cardiovascular: Yes: Regular Rate and Rhythm Respiratory: Yes: CTA Bilaterally Gastrointestinal Inspection: No: Distention ...Auscultate: Yes: Normoactive Bowel Sounds ...Palpate: Yes: Splenomegaly. No: Hepatomegaly, Tenderness ...Percussion: No: Tympanitic Edema: No (No LE edema) Neurological: Yes: Alert Labs: CBC, BMP 03/04/18 08:52 INR, PTT INR 1.44 (0.83-1.09) H 03/04/18 08:52 Problem List - Problems (1) Pancreatic abnormality Assessment/Plan: Overall clinically improved Awaiting MRI of the abdomen to reevaluate pancreas / help assess for signs of portal hypertension contributing to thrombocytopenia Code(s): Q45.3 - [facility] CONGENITAL MALFORMATIONS OF PANCREAS AND PANCREATIC DUCT (2) Pancytopenia Assessment/Plan: Heme following Code(s): D61.818 - OTHER PANCYTOPENIA
[2018-03-04 10:33] LABS: ALBUMIN 2.6 g/dl (3.4-5.0); ALK PHOS 98 U/L (45-117); ANION GAP 6 MMOL/L (8-16); BILIRUBIN,TOTAL 0.9 mg/dL (0.2-1); BLOOD UREA NITROGEN 5 mg/dL (7-18); CALCIUM 7.4 mg/dL (8.5-10.1); CHLORIDE 106 mmol/L (98-107); CO2 26 mmol/L (21-32); CREATININE 0.7 mg/dL (0.55-1.3); GLUCOSE,RANDOM 235 mg/dL (74-106); LDH 272 U/L (87-246); LIPASE 291 U/L (73-393); MAGNESIUM 1.9 mg/dL (1.8-2.4); PHOSPHOROUS 3.8 mg/dL (2.5-4.9); POTASSIUM 3.8 mmol/L (3.5-5.1); SGOT/AST 36 U/L (15-37); SGPT/ALT 35 U/L (13-61); SODIUM 138 mmol/L (136-145); TOT PROT 6.2 g/dl (6.4-8.2)
--- NOTE | 2018-03-04 12:07 | PN ---
Progress Note, Physician Chief Complaint: Mr Warren says he feels fine. Denies cp, sob, n/v. - Current Medication List Current Medications: Active Medications Acetaminophen (Tylenol -) 650 mg PO Q6H PRN PRN Reason: PAIN LEVEL 1-5 Last Admin: 03/03/18 21:24 Dose: 650 mg Diphenhydramine HCl (Benadryl -) 25 mg PO Q6H PRN PRN Reason: FOR ITCHING Acyclovir 800 mg/ Dextrose 266 mls @ 177.333 mls/hr IVPB TID [facility] Last Admin: 03/04/18 06:02 Dose: 177.333 mls/hr Piperacillin Sod/Tazobactam (Sod 4.5 gm/ Dextrose) 100 mls @ 200 mls/hr IVPB Q8H [facility]; Protocol Last Admin: 03/04/18 05:56 Dose: 200 mls/hr Lactated Ringer's (Lactated Ringers Solution) 1,000 ml in 1,000 mls @ 100 mls/ hr IV ASDIR [facility] Last Admin: 03/03/18 21:11 Dose: 100 mls/hr Ibuprofen (Motrin -) 400 mg PO Q6H PRN PRN Reason: FEVER Last Admin: 03/02/18 17:44 Dose: 400 mg Insulin Aspart (Novolog Vial Sliding Scale -) 1 vial SQ [facility]; Protocol Last Admin: 03/04/18 06:00 Dose: 2 unit - Objective Vital Signs: Vital Signs Temperature 36.6 C 03/04/18 07:23 Pulse Rate 78 03/04/18 07:23 Respiratory Rate 20 03/04/18 07:23 Blood Pressure 110/74 03/04/18 07:23 O2 Sat by Pulse Oximetry (%) 98 03/03/18 09:00 Constitutional: Yes: Well Nourished, No Distress, Calm Cardiovascular: Yes: Regular Rate and Rhythm. No: Gallop, Murmur, Rub Respiratory: Yes: Regular, CTA Bilaterally. No: Rales, Rhonchi, Wheezes Gastrointestinal: Yes: Normal Bowel Sounds, Soft. No: Distention, Tenderness Extremities: Yes: WNL Edema: No Labs: CBC, BMP 03/04/18 08:52 03/04/18 08:52 INR, PTT INR 1.44 (0.83-1.09) H 03/04/18 08:52 Fibrinogen 194.0 mg/dL (238-498) L 03/04/18 08:52 Problem List - Problems (1) Chicken pox Code(s): B01.9 - VARICELLA WITHOUT COMPLICATION Qualifiers: Varicella complications: without complication Qualified Code(s): B01.9 - Varicella without complication (2) Pancreatitis Code(s): K85.90 - ACUTE PANCREATITIS WITHOUT NECROSIS OR INFECTION, UNSP (3) Pancytopenia Code(s): D61.818 - OTHER PANCYTOPENIA (4) Diabetes Code(s): E11.9 - TYPE 2 DIABETES MELLITUS WITHOUT COMPLICATIONS (5) Cholecystitis Code(s): K81.9 - CHOLECYSTITIS, UNSPECIFIED Assessment/Plan (1) Chicken pox Assessment/Plan: -much improved today -continue acyclovir -ID following Code(s): B01.9 - VARICELLA WITHOUT COMPLICATION Qualifiers: Varicella complications: without complication Qualified Code(s): B01.9 - Varicella without complication (2) Pancreatitis Assessment/Plan: -case d/w GI -suspect secondary to varicella -tolerating diabetic diet -pending MRCP Code(s): K85.90 - ACUTE PANCREATITIS WITHOUT NECROSIS OR INFECTION, UNSP (3) Pancytopenia Assessment/Plan: -appreciate hematology assistance -suspect reactive -improving Code(s): D61.818 - OTHER PANCYTOPENIA (4) Diabetes Assessment/Plan: -metformin is class 3 for pancreatitis -will not add currently secondary to current pancreatic presentation -will add levemir at night while hospitalized -can restart home medications pending MRCP -will need close outpatient follow up for this Code(s): E11.9 - TYPE 2 DIABETES MELLITUS WITHOUT COMPLICATIONS (5) Cholecystitis Assessment/Plan: -case d/w Dr Gamino -low suspicion for cholecystitis -continue zosyn per ID -MRCP ordered Code(s): K81.9 - CHOLECYSTITIS, UNSPECIFIED
[2018-03-04 12:54] LABS: ANISOCYTOSIS 2+; MACROCYTOSIS 0; OVALOCYTE 1+; PLATELET ESTIMATE DECREASED; TEAR DROP CELLS 1+
[2018-03-04] MEDS ORDERED: PT OWN MED DRAWER 7, Y5N ONE ×2 (13:32→20:33)
[2018-03-04] MEDS ORDERED: DEXTROSE 5%-WATER 100 ML IVPB ONE ×2 (13:32→20:31)
[2018-03-04] MEDS: LACTATED RINGERS SOLUTION 1,000 ML/1,000 ML INFUS.BAG IV SCH (17:45)
[2018-03-04] MEDS: ACETAMINOPHEN 325 MG TABLET (FP) PO PRN (20:37)
[2018-03-04] MEDS ORDERED: INSULIN (LEVEMIR) 100 UNITS/ML UNITS SQ SCH (22:00)
[2018-03-05] MEDS: INSULIN SLIDING SCALE (NOVOLOG) 1 VIAL SQ SCH ×5 (00:05→21:34)
[2018-03-05 00:06] LABS: SERUM IRON SATURATION 6 % (15-55); TOTAL IRON BINDING CAPACITY 247 ug/dL (250-450); UIBC 233 ug/dL (111-343)
[2018-03-05] MEDS ORDERED: PIPERACILLIN/TAZOBACTAM 4.5 GM VIAL IVPB ONE (05:20)
[2018-03-05] MEDS ORDERED: DEXTROSE 5%-WATER 100 ML IVPB ONE (05:21)
[2018-03-05] MEDS: PIPERACILLIN/TAZOB 4.5 GM 4.5 GM in DEXTROSE 5%-WATER 100 ML IVPB SCH (06:06)
[2018-03-05] MEDS: ACYCLOVIR INJECTION 800 MG in DEXTROSE 5%-WATER - 250 ML IVPB SCH (06:06)
[2018-03-05] MEDS: LACTATED RINGERS SOLUTION 1,000 ML/1,000 ML INFUS.BAG IV SCH (06:08)
[2018-03-05] MEDS: ACETAMINOPHEN 325 MG TABLET (FP) PO PRN (07:09)
[2018-03-05 08:31] LABS: BASO % 0.7 % (0-2.0); EOS % 0.1 % (0-4.5); HEMATOCRIT 26.5 % (35.4-49); HEMOGLOBIN 8.2 GM/dL (11.7-16.9); LYMPH % 25.9 % (8-40); MCH 23.4 pg (25.7-33.7); MCHC 30.9 g/dl (32.0-35.9); MEAN CELL VOLUME 75.9 fl (80-96); MEAN PLT VOLUME 10.2 fl (7.5-11.1); MONO % 9.3 % (3.8-10.2); PLATELET COUNT 45 K/MM3 (134-434); RDW 17.9 % (11.9-15.9); WHITE BLOOD COUNT 2.3 K/mm3 (4.0-10.0)
[2018-03-05 08:42] LABS: ANION GAP 7 MMOL/L (8-16); BLOOD UREA NITROGEN 6 mg/dL (7-18); CALCIUM 7.4 mg/dL (8.5-10.1); CHLORIDE 106 mmol/L (98-107); CO2 25 mmol/L (21-32); CREATININE 0.6 mg/dL (0.55-1.3); GLUCOSE,RANDOM 183 mg/dL (74-106); MAGNESIUM 1.8 mg/dL (1.8-2.4); PHOSPHOROUS 4.9 mg/dL (2.5-4.9); POTASSIUM 3.9 mmol/L (3.5-5.1); SODIUM 138 mmol/L (136-145)
--- NOTE | 2018-03-05 11:57 | PN ---
Progress Note (short form) - Note Progress Note: Heme/Onc Patient seen and examined at bedside with and RN present He states he feels so-so but is not able to explain why he feels that way Remains pancytopenic Vital Signs Temperature 97.8 F 03/05/18 06:00 Pulse Rate 77 03/05/18 06:00 Respiratory Rate 18 03/05/18 06:00 Blood Pressure 104/60 03/05/18 06:00 O2 Sat by Pulse Oximetry (%) 98 03/03/18 09:00 PE: NAD lying in bed PERRL RRR S1 S2 CTAB soft non tender non distended Multiple crusted vesicles all over body 03/05/18 03/05/18 07:45 07:45 WBC 2.3 L RBC 3.50 L Hgb 8.2 L Hct 26.5 L MCV 75.9 L MCHC 30.9 L RDW 17.9 H Plt Count 45 L Neutrophils % 64.0 D Lymphocytes % 25.9 Monocytes % 9.3 Eosinophils % 0.1 Basophils % 0.7 Sodium 138 Potassium 3.9 Chloride 106 Carbon Dioxide 25 Anion Gap 7 L BUN 6 L Creatinine 0.6 03/02/18 06:05 Blood Culture - Preliminary Blood - Peripheral Venous NO GROWTH OBTAINED AFTER 72 HOURS, INCUBATION TO CONTINUE FOR 2 DAYS. 03/02/18 06:00 Blood Culture - Preliminary Blood - Peripheral Venous NO GROWTH OBTAINED AFTER 72 HOURS, INCUBATION TO CONTINUE FOR 2 DAYS. 03/02/18 05:50 Urine Culture - Final Urine - Urine Clean Catch A/P: Problem List: DM vesicular rash-chicken pox HLD Pancytopenia Pancreatitis Plan: flow cytometry sent and pending Acyclovir/ABx per ID Pancytopenia is either from viral syndrome or possibly underlying liver disease f/u MRI abdomen continue trending CBC Will follow
--- NOTE | 2018-03-05 12:24 | PN ---
GI Progress Note Subjective: No acute events Tolerating po States feeling well - Objective Vital Signs: Vital Signs Temperature 97.8 F 03/05/18 06:00 Pulse Rate 77 03/05/18 06:00 Respiratory Rate 18 03/05/18 06:00 Blood Pressure 104/60 03/05/18 06:00 O2 Sat by Pulse Oximetry (%) 98 03/03/18 09:00 Constitutional: Calm Eyes: No: Sclera Icterus Cardiovascular: Yes: Regular Rate and Rhythm Respiratory: Yes: CTA Bilaterally ...Auscultate: Yes: Normoactive Bowel Sounds ...Percussion: No: Tympanitic Edema: No (No LE edema) Neurological: Yes: Alert Labs: CBC, BMP 03/05/18 07:45 03/05/18 07:45 INR, PTT INR 1.44 (0.83-1.09) H 03/04/18 08:52 Fibrinogen 194.0 mg/dL (238-498) L 03/04/18 08:52 Hepatic Panel Total Bilirubin 0.9 mg/dL (0.2-1) 03/04/18 08:52 Direct Bilirubin 0.3 mg/dL (0.0-0.2) H 03/03/18 08:00 AST 36 U/L (15-37) 03/04/18 08:52 ALT 35 U/L (13-61) 03/04/18 08:52 Alkaline Phosphatase 98 U/L (45-117) 03/04/18 08:52 Albumin 2.6 g/dl (3.4-5.0) L 03/04/18 08:52 Problem List - Problems (1) Pancreatic abnormality Assessment/Plan: Abdominal complaints seemed to have resolved, temporally along with the improving chicken pox Await MRI of abdomen Patient aware of concern for underlying chronic liver disease Code(s): Q45.3 - OTH CONGENITAL MALFORMATIONS OF PANCREAS AND PANCREATIC DUCT (2) Pancytopenia Assessment/Plan: Heme following Code(s): D61.818 - OTHER PANCYTOPENIA
--- NOTE | 2018-03-05 14:33 | PN ---
Progress Note (short form) - Note Progress Note: clinically markedly improved fevers resolved HAs resolved no abdominal pain Vital Signs Period Temp Pulse Resp BP Sys/Arias Pulse Ox Last 24 Hr 97.7 F-98.1 F 72-85 104-127/60-70 cor-rrr lungs clear abd soft,nt ext no edema skin vesicular rash is drying CBC, BMP 03/05/18 07:45 03/05/18 07:45 Microbiology 03/02/18 06:05 Blood - Peripheral Venous Blood Culture - Preliminary NO GROWTH OBTAINED AFTER 72 HOURS, INCUBATION TO CONTINUE FOR 2 DAYS. 03/02/18 06:00 Blood - Peripheral Venous Blood Culture - Preliminary NO GROWTH OBTAINED AFTER 72 HOURS, INCUBATION TO CONTINUE FOR 2 DAYS. 03/02/18 05:50 Urine - Urine Clean Catch Urine Culture - Final Laboratory Tests 03/02/18 11:00 VZV IgM Antibody 1.25 H Current Medications Acetaminophen (Tylenol -) 650 mg PO Q6H PRN PRN Reason: PAIN LEVEL 1-5 Last Admin: 03/05/18 07:09 Dose: 650 mg Diphenhydramine HCl (Benadryl -) 25 mg PO Q6H PRN PRN Reason: FOR ITCHING Lactated Ringer's (Lactated Ringers Solution) 1,000 ml in 1,000 mls @ 100 mls/ hr IV ASDIR [facility] Last Admin: 03/05/18 06:08 Dose: 100 mls/hr Acyclovir 800 mg/ Sodium (Chloride) 266 mls @ 177.333 mls/hr IVPB TID [facility] Ibuprofen (Motrin -) 400 mg PO Q6H PRN PRN Reason: FEVER Last Admin: 03/02/18 17:44 Dose: 400 mg Insulin Aspart (Novolog Vial Sliding Scale -) 1 vial SQ ACHS [facility]; Protocol Last Admin: 03/05/18 11:48 Dose: 12 unit Insulin Detemir (Levemir Vial) 10 units SQ HS [facility] Last Admin: 03/04/18 21:52 Dose: 10 unit a/p varicella resolving- day #3 acyclovir continue ivf can switch to po valtrex in am -complete total 7 days pancytopenia persists- puzzling that it has persisted despite clinical improvement in varicella, not sure the 2 events are related await hematology followup pancreatitis clinically resolving ?secondary to varicella continue isolation Problem List - Problems (1) Chicken pox Code(s): B01.9 - VARICELLA WITHOUT COMPLICATION Qualifiers: Varicella complications: without complication Qualified Code(s): B01.9 - Varicella without complication (2) Pancytopenia Code(s): D61.818 - OTHER PANCYTOPENIA (3) Pancreatitis Code(s): K85.90 - ACUTE PANCREATITIS WITHOUT NECROSIS OR INFECTION, UNSP
[2018-03-05] MEDS: ACYCLOVIR INJECTION 800 MG in SODIUM CHLORIDE 250 ML IVPB SCH ×2 (14:42→21:40)
--- NOTE | 2018-03-05 15:30 | PN ---
Progress Note, Physician Chief Complaint: comfortable denies any complaints - Current Medication List Current Medications: Active Medications Acetaminophen (Tylenol -) 650 mg PO Q6H PRN PRN Reason: PAIN LEVEL 1-5 Last Admin: 03/05/18 07:09 Dose: 650 mg Diphenhydramine HCl (Benadryl -) 25 mg PO Q6H PRN PRN Reason: FOR ITCHING Lactated Ringer's (Lactated Ringers Solution) 1,000 ml in 1,000 mls @ 100 mls/ hr IV ASDIR [facility] Last Admin: 03/05/18 06:08 Dose: 100 mls/hr Acyclovir 800 mg/ Sodium (Chloride) 266 mls @ 177.333 mls/hr IVPB TID [facility] Last Admin: 03/05/18 14:42 Dose: 177.333 mls/hr Ibuprofen (Motrin -) 400 mg PO Q6H PRN PRN Reason: FEVER Last Admin: 03/02/18 17:44 Dose: 400 mg Insulin Aspart (Novolog Vial Sliding Scale -) 1 vial SQ [facility]; Protocol Last Admin: 03/05/18 11:48 Dose: 12 unit Insulin Detemir (Levemir Vial) 10 units SQ HS [facility] Last Admin: 03/04/18 21:52 Dose: 10 unit - Objective Vital Signs: Vital Signs Temperature 97.8 F 03/05/18 15:00 Pulse Rate 78 03/05/18 15:00 Respiratory Rate 19 03/05/18 15:00 Blood Pressure 110/63 03/05/18 15:00 O2 Sat by Pulse Oximetry (%) 98 03/03/18 09:00 not in distress comfortable HEENT: Mm moist, no anemia, PERRLA EOMI, few drying rash of chicken Pox NECK: No JVd No Bruit CHEST: CTa B/L CVS: s1S2 R no m/g/r ABD: No distention, non tender Bs = EXT: No ascencion afeet, no calf tenderness Pulses =2 [employer]: AOX3 non focal Labs: CBC, BMP 03/05/18 07:45 03/05/18 07:45 INR, PTT INR 1.44 (0.83-1.09) H 03/04/18 08:52 Fibrinogen 194.0 mg/dL (238-498) L 03/04/18 08:52 CBCD WBC 2.3 K/mm3 (4.0-10.0) L 03/05/18 07:45 RBC 3.50 M/mm3 (4.00-5.60) L 03/05/18 07:45 Hgb 8.2 GM/dL (11.7-16.9) L 03/05/18 07:45 Hct 26.5 % (35.4-49) L 03/05/18 07:45 MCV 75.9 fl (80-96) L 03/05/18 07:45 MCHC 30.9 g/dl (32.0-35.9) L 03/05/18 07:45 RDW 17.9 % (11.9-15.9) H 03/05/18 07:45 Plt Count 45 K/MM3 (134-434) L 03/05/18 07:45 MPV 10.2 fl (7.5-11.1) 03/05/18 07:45 CMP Sodium 138 mmol/L (136-145) 03/05/18 07:45 Potassium 3.9 mmol/L (3.5-5.1) 03/05/18 07:45 Chloride 106 mmol/L (98-107) 03/05/18 07:45 Carbon Dioxide 25 mmol/L (21-32) 03/05/18 07:45 Anion Gap 7 MMOL/L (8-16) L 03/05/18 07:45 BUN 6 mg/dL (7-18) L 03/05/18 07:45 Creatinine 0.6 mg/dL (0.55-1.3) 03/05/18 07:45 Creat Clearance w eGFR > 60 (>60) 03/05/18 07:45 Calcium 7.4 mg/dL (8.5-10.1) L 03/05/18 07:45 Total Bilirubin 0.9 mg/dL (0.2-1) 03/04/18 08:52 AST 36 U/L (15-37) 03/04/18 08:52 ALT 35 U/L (13-61) 03/04/18 08:52 Alkaline Phosphatase 98 U/L (45-117) 03/04/18 08:52 Total Protein 6.2 g/dl (6.4-8.2) L 03/04/18 08:52 Albumin 2.6 g/dl (3.4-5.0) L 03/04/18 08:52 Problem List - Problems (1) Chicken pox Assessment/Plan: on Acyclovir as per ID f/U BMP IV hydration Code(s): B01.9 - VARICELLA WITHOUT COMPLICATION Qualifiers: Varicella complications: without complication Qualified Code(s): B01.9 - Varicella without complication (2) Pancreatitis Assessment/Plan: No pain abdomen most likely vitral awaiting MRCP Code(s): K85.90 - ACUTE PANCREATITIS WITHOUT NECROSIS OR INFECTION, UNSP (3) Pancytopenia Assessment/Plan: Due to Viral infection will F/U CBc and hematology recommendations. Code(s): D61.818 - OTHER PANCYTOPENIA (4) Diabetes Assessment/Plan: Uncontrolled will Optimize Glycemic control increse dose of lantus by 4 units F/ U accu check and correction dose insulin. Code(s): E11.9 - TYPE 2 DIABETES MELLITUS WITHOUT COMPLICATIONS
[2018-03-05] MEDS ORDERED: PT OWN MED DRAWER 7, Y5N ONE (21:38)
[2018-03-05] MEDS ORDERED: INSULIN (LEVEMIR) 100 UNITS/ML UNITS SQ SCH (22:00)
[2018-03-06 00:07] LABS: HBSAG SCREEN Negative (Negative); HEP A AB, IGM Negative (Negative); HEP B CORE AB, TOT Negative (Negative)
[2018-03-06] MEDS ORDERED: PT OWN MED DRAWER 7, Y5N ONE ×2 (02:18→13:35)
[2018-03-06] MEDS: LACTATED RINGERS SOLUTION 1,000 ML/1,000 ML INFUS.BAG IV SCH ×2 (02:19→05:33)
[2018-03-06] MEDS: ACYCLOVIR INJECTION 800 MG in SODIUM CHLORIDE 250 ML IVPB SCH ×2 (05:26→13:42)
[2018-03-06] MEDS: INSULIN SLIDING SCALE (NOVOLOG) 1 VIAL SQ SCH ×4 (06:19→22:16)
[2018-03-06 07:38] LABS: BASO % 0.8 % (0-2.0); EOS % 0.3 % (0-4.5); HEMATOCRIT 26.1 % (35.4-49); HEMOGLOBIN 8.2 GM/dL (11.7-16.9); MCH 23.5 pg (25.7-33.7); MCHC 31.2 g/dl (32.0-35.9); MEAN CELL VOLUME 75.1 fl (80-96); MEAN PLT VOLUME 10.3 fl (7.5-11.1); MONO % 10.8 % (3.8-10.2); NEUT % 57.1 % (42.8-82.8); PLATELET COUNT 49 K/MM3 (134-434); RBC 3.48 M/mm3 (4.00-5.60); RDW 17.5 % (11.9-15.9)
[2018-03-06 08:34] LABS: ALBUMIN 2.6 g/dl (3.4-5.0); ALK PHOS 98 U/L (45-117); ANION GAP 8 MMOL/L (8-16); BILIRUBIN,TOTAL 0.8 mg/dL (0.2-1); BLOOD UREA NITROGEN 7 mg/dL (7-18); CALCIUM 7.7 mg/dL (8.5-10.1); CHLORIDE 106 mmol/L (98-107); CO2 23 mmol/L (21-32); CREATININE 0.7 mg/dL (0.55-1.3); GLUCOSE,RANDOM 147 mg/dL (74-106); POTASSIUM 3.9 mmol/L (3.5-5.1); SGOT/AST 42 U/L (15-37); SGPT/ALT 36 U/L (13-61); SODIUM 138 mmol/L (136-145); TOT PROT 7.2 g/dl (6.4-8.2)
--- NOTE | 2018-03-06 11:09 | PN ---
Progress Note (short form) - Note Progress Note: Heme/Onc Patient seen and examined at bedside with and RN present He states he feels good today He is worried with what is going on inside his body MRI results noted Remains pancytopenic Vital Signs Temperature 98.1 F 03/06/18 06:28 Pulse Rate 74 03/06/18 06:28 Respiratory Rate 18 03/06/18 06:28 Blood Pressure 114/63 03/06/18 06:28 O2 Sat by Pulse Oximetry (%) 98 03/05/18 21:00 PE: NAD lying in bed PERRL RRR S1 S2 CTAB soft non tender non distended Multiple crusted vesicles all over body 03/04/18 03/06/18 03/06/18 08:52 06:30 06:30 WBC 2.0 L RBC 3.48 L Hgb 8.2 L Hct 26.6 L 26.1 L MCV 75.1 L MCHC 31.2 L RDW 17.5 H Plt Count 49 L Neutrophils % 57.1 Lymphocytes % 31.0 Monocytes % 10.8 H Eosinophils % 0.3 D Basophils % 0.8 Sodium 138 Potassium 3.9 Chloride 106 Carbon Dioxide 23 Anion Gap 8 BUN 7 Creatinine 0.7 03/02/18 06:05 Blood Culture - Preliminary Blood - Peripheral Venous NO GROWTH OBTAINED AFTER 96 HOURS, INCUBATION TO CONTINUE FOR 1 DAYS. 03/02/18 06:00 Blood Culture - Preliminary Blood - Peripheral Venous NO GROWTH OBTAINED AFTER 96 HOURS, INCUBATION TO CONTINUE FOR 1 DAYS. 03/02/18 05:50 Urine Culture - Final Urine - Urine Clean Catch A/P: Problem List: DM vesicular rash-chicken pox HLD Pancytopenia Pancreatitis Plan: flow cytometry sent and pending Acyclovir per ID MRI findings consistent with liver cirrhosis and splenomegaly. patient has portal hypertension. in right dome of the liver there is a 1.1cm arterial enhancement with rapid washout. Could represent dysplastic nodule vs early HCC vs benign finding. Pancreas WNL. Pancytopenia is either from viral syndrome or possibly underlying liver disease- Given MRI findings and no recovery of all cell lines his pancytopenia is likely secondary to liver disease Discussed MRI findings with patient Send AFP f/u GI f/u with Dr. Novak if patient is discharged continue trending CBC Will follow
--- NOTE | 2018-03-06 15:45 | PN ---
Progress Note (short form) - Note Progress Note: clinically markedly improved Vital Signs Period Temp Pulse Resp BP Sys/Arias Pulse Ox Last 24 Hr 98.0 F-98.3 F 74-81 18-18 105-116/51-65 98-100 cor-rrr lungs clear abd soft,nt ext no edema CBC, BMP 03/06/18 06:30 03/06/18 06:30 Microbiology 03/02/18 06:05 Blood - Peripheral Venous Blood Culture - Preliminary NO GROWTH OBTAINED AFTER 96 HOURS, INCUBATION TO CONTINUE FOR 1 DAYS. 03/02/18 06:00 Blood - Peripheral Venous Blood Culture - Preliminary NO GROWTH OBTAINED AFTER 96 HOURS, INCUBATION TO CONTINUE FOR 1 DAYS. 03/02/18 05:50 Urine - Urine Clean Catch Urine Culture - Final MRI with livercirrhosis, portal htn and splenomegaly a/p varicella resolving- day #5 acyclovir switch to po valtrex to complete 7 days lesions are scabbing pancytopenia- needs heme f/u pancreatitis clinically resolving ?secondary to varicella continue isolation spoke to his PMD Dr Nora Pillai [address] [place] tel [phone] fax [phone] new to his care-from January 2018 labs last year wbc was 3.69 hgb- 14.9 plts 55k will try to get fax of labs for the chart she is going to fax his labs Problem List - Problems (1) Chicken pox Code(s): B01.9 - VARICELLA WITHOUT COMPLICATION Qualifiers: Varicella complications: without complication Qualified Code(s): B01.9 - Varicella without complication (2) Pancytopenia Code(s): D61.818 - OTHER PANCYTOPENIA (3) Pancreatitis Code(s): K85.90 - ACUTE PANCREATITIS WITHOUT NECROSIS OR INFECTION, UNSP
--- NOTE | 2018-03-06 16:35 | PN ---
GI Progress Note - Objective Vital Signs: Vital Signs Temperature 98.0 F 03/06/18 15:23 Pulse Rate 80 03/06/18 15:23 Respiratory Rate 18 03/06/18 15:23 Blood Pressure 116/65 03/06/18 15:23 O2 Sat by Pulse Oximetry (%) 100 03/06/18 09:00 Constitutional: Calm Eyes: No: Sclera Icterus Cardiovascular: Yes: Regular Rate and Rhythm Respiratory: Yes: CTA Bilaterally Gastrointestinal Inspection: No: Distention ...Auscultate: Yes: Normoactive Bowel Sounds ...Palpate: Yes: Splenomegaly. No: Hepatomegaly, Tenderness ...Percussion: No: Tympanitic ...Rectal Exam: Yes: Other (No external lesions, no masses, scant light brown stool, tracely guaiac positive) Edema: No (No LE edema) Neurological: Yes: Alert Labs: CBC, BMP 03/06/18 06:30 03/06/18 06:30 INR, PTT INR 1.44 (0.83-1.09) H 03/04/18 08:52 Fibrinogen 194.0 mg/dL (238-498) L 03/04/18 08:52 Laboratory Tests 03/03/18 03/06/18 08:00 12:00 Tumor Marker AFP Pending Hep A IgM Ab Confirm Negative Hepatitis A Ab Total Positive H Hep Bs Antigen Negative Hep Bs Antibody Non reactive Hep B Core Total Ab Negative - ....Imaging MRI: Report Reviewed (Arterially enhancing liver lesion in dome of liver (1.1cm) , ? lung lesion, massive splenomegaly, distended stomach (patient without complaints of N/V, tolerating PO)) Problem List - Problems (1) Portal hypertension Assessment/Plan: Discussed MRI findings with Mr. Warren's nurse translating in Armenian. Explained potential sequela of the diagnosis of liver cirrhosis including but not limited to bleeding, infection, liver cancer and from these complications. Discussed that he likely will need evaluation for liver transplant as well. Discussed finding of the liver lesion in his liver and that this could possibly reflect a liver cancer. Will be arranging outpatient follow-up with the [facility] liver transplant team that see patients at the [address] [place] [address] office. This was explained to Mr. Warren. 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 Another concern would be physical activity predisposing him to possible splenic rupture. Heme is following to exclude alternate causes of his splenomegaly Code(s): K76.6 - PORTAL HYPERTENSION (2) Pancytopenia Assessment/Plan: with neutropenia Heme following When isolation issues and neutropenia resolves, he will need upper endoscopy to exclude varices as well as colonoscopy to exclude potential source of GI blood loss. I explained this to mr. Warren. iron supplementation. Code(s): D61.818 - OTHER PANCYTOPENIA
--- NOTE | 2018-03-06 19:15 | PN ---
Progress Note (short form) - Note Progress Note: Subjective: patient refuse exam and interview Objective: Vital Signs: Last Vital Signs Temp Pulse Resp BP Pulse Ox 97.6 F 105 H 18 107/59 L 100 03/06/18 18:19 03/06/18 18:19 03/06/18 18:19 03/06/18 18:19 03/06/18 09:00 Laboratory Results - last 24 hr 03/03/18 03/04/18 03/05/18 08:00 08:52 21:34 WBC RBC Hgb Hct 26.6 L MCV MCH MCHC RDW Plt Count MPV Absolute Neuts (auto) Neutrophils % Lymphocytes % Monocytes % Eosinophils % Basophils % Nucleated RBC % Sodium Potassium Chloride Carbon Dioxide Anion Gap BUN Creatinine Creat Clearance w eGFR POC Glucometer 250 Random Glucose Hemoglobin A1c % Calcium Total Bilirubin AST ALT Alkaline Phosphatase Total Protein Albumin Folate 1736 Folate Hemolysate 461.7 Hep A IgM Ab Confirm Negative Hepatitis A Ab Total Positive H Hep Bs Antigen Negative Hep Bs Antibody Non reactive Hep B Core Total Ab Negative 03/06/18 03/06/18 03/06/18 05:36 06:30 06:30 WBC 2.0 L RBC 3.48 L Hgb 8.2 L Hct 26.1 L MCV 75.1 L MCH 23.5 L MCHC 31.2 L RDW 17.5 H Plt Count 49 L MPV 10.3 Absolute Neuts (auto) 1.1 L Neutrophils % 57.1 Lymphocytes % 31.0 Monocytes % 10.8 H Eosinophils % 0.3 D Basophils % 0.8 Nucleated RBC % 0 Sodium 138 Potassium 3.9 Chloride 106 Carbon Dioxide 23 Anion Gap 8 BUN 7 Creatinine 0.7 Creat Clearance w eGFR > 60 POC Glucometer 182 Random Glucose 147 H Hemoglobin A1c % Calcium 7.7 L Total Bilirubin 0.8 AST 42 H ALT 36 Alkaline Phosphatase 98 Total Protein 7.2 Albumin 2.6 L Folate Folate Hemolysate Hep A IgM Ab Confirm Hepatitis A Ab Total Hep Bs Antigen Hep Bs Antibody Hep B Core Total Ab 03/06/18 03/06/18 03/06/18 06:30 11:46 17:55 WBC RBC Hgb Hct MCV MCH MCHC RDW Plt Count MPV Absolute Neuts (auto) Neutrophils % Lymphocytes % Monocytes % Eosinophils % Basophils % Nucleated RBC % Sodium Potassium Chloride Carbon Dioxide Anion Gap BUN Creatinine Creat Clearance w eGFR POC Glucometer 224 300 Random Glucose Hemoglobin A1c % 10.3 H Calcium Total Bilirubin AST ALT Alkaline Phosphatase Total Protein Albumin Folate Folate Hemolysate Hep A IgM Ab Confirm Hepatitis A Ab Total Hep Bs Antigen Hep Bs Antibody Hep B Core Total Ab Physical Exam: declined Assessment/Plan: 37 y/o man with h//o poorly controlled diabetes who presented with fever and rash and was found to have chicken pox and pancytopenia 1- chicken pox 2- elevated lipase 3- pancytopenia ( old ) 4- signs of cirrhosis on MRI 5- mesentric ischemia 6- liver lesions 7- DM : uncontrolled plan : - unfortunately declined exam - cont to moniro CBC - valtrex - -follow up with PCP and GI - liver lesions need to be followed with imaging - increase levemir Visit type - Emergency Visit Emergency Visit: Yes ED Registration Date: 03/02/18 Care time: The patient presented to the Emergency Department on the above date and was hospitalized for further evaluation of their emergent condition. - New Patient This patient is new to me today: Yes Date on this admission: 03/06/18 - Critical Care Critical Care patient: No
--- NOTE | 2018-03-06 20:11 | PN ---
Teaching Attending Note Name of Resident: Sánchez Pollard ATTENDING PHYSICIAN STATEMENT I saw and evaluated the patient. I reviewed the resident's note and discussed the case with the resident. I agree with the resident's findings and plan as documented. SUBJECTIVE: Patient seen and examined Previous records from outside reveal WBC-[id number], platelet count of 55K, and Hct of 44% Patient with significant portal hypertension, splenic and portal vein dilatation , massive splenomegaly, cirrhotic appearing live, perigastric varices , thickened stomach lining, small bowel and gall bladder thickened wall. Last Vital Signs Temp Pulse Resp BP Pulse Ox 97.6 F 105 H 18 107/59 L 100 03/06/18 18:19 03/06/18 18:19 03/06/18 18:19 03/06/18 18:19 03/06/18 09:00 OBJECTIVE: HEENT: SKYLER, EOM Intact Oropharynx: No thrush, No mucositis Cor: RSR, No murmurs, No gallops Lungs: Clear to P&A Abd: Soft, Normal bowel sounds, spleen --7 finger breaths below LCM Ext:No significant edema Skin:crusted vessicles CBC, BMP 03/06/18 06:30 03/06/18 06:30 Current Medications Generic Name Dose Route Start Last Admin Trade Name Freq PRN Reason Stop Dose Admin Acetaminophen 650 mg 03/02/18 04:26 03/05/18 07:09 Tylenol - PO 650 mg Q6H PRN Administration PAIN LEVEL 1-5 Diphenhydramine HCl 25 mg 03/02/18 04:31 Benadryl - PO Q6H PRN FOR ITCHING Lactated Ringer's 1,000 ml in 1,000 mls @ 100 mls/hr 03/03/18 16:15 03/06/18 05:33 Lactated Ringers Solution IV 100 mls/hr ASDIR [facility] Administration Ibuprofen 400 mg 03/02/18 17:32 03/02/18 17:44 Motrin - PO 400 mg Q6H PRN Administration FEVER Insulin Aspart 1 vial 03/02/18 07:00 03/06/18 17:56 Novolog Vial Sliding Scale - SQ 6 units ACHS [facility] Administration Protocol Insulin Detemir 18 units 03/06/18 22:00 Levemir Vial SQ HS [facility] Valacyclovir HCl 1,000 mg 03/06/18 22:00 Valtrex - PO TID [facility] Impression: Resolving varicella Pancytopenia due in large part to cirrhosis, with portal hypertension, with superimposed pancreatitis and varicella Cirrhosis Hypersplenism Reluctant to give neupogen for fear of splenic rupture, Hct previously normal now 26%. Suspect bleeding ? variceal , ? other as etiology for fall in Hb/Hct. To monitor labs Will need GI assessment when feasible. ASSESSMENT AND PLAN:
[2018-03-06] MEDS ORDERED: valACYclovir HCL 1000 MG TABLET PO SCH (22:00)
[2018-03-06] MEDS ORDERED: INSULIN (LEVEMIR) 100 UNITS/ML UNITS SQ SCH (22:00)
[2018-03-07] MEDS ORDERED: INSULIN (NOVOLOG) ASPART 100 UNITS/ML 10ML VIAL ONE (05:39)
[2018-03-07] MEDS: valACYclovir HCL 500 MG TABLET (FP) PO SCH ×3 (06:27→21:12)
[2018-03-07] MEDS: LACTATED RINGERS SOLUTION 1,000 ML/1,000 ML INFUS.BAG IV SCH (06:35)
[2018-03-07] MEDS: INSULIN SLIDING SCALE (NOVOLOG) 1 VIAL SQ SCH ×4 (06:36→21:12)
[2018-03-07 07:55] LABS: BASO % 0.7 % (0-2.0); EOS % 0.3 % (0-4.5); HEMATOCRIT 25.8 % (35.4-49); LYMPH % 27.7 % (8-40); MCH 23.3 pg (25.7-33.7); MEAN CELL VOLUME 75.3 fl (80-96); MEAN PLT VOLUME 9.9 fl (7.5-11.1); MONO % 11.6 % (3.8-10.2); NEUT % 59.7 % (42.8-82.8); PLATELET COUNT 53 K/MM3 (134-434); RBC 3.43 M/mm3 (4.00-5.60); RDW 17.3 % (11.9-15.9)
[2018-03-07 09:00] LABS: ALBUMIN 2.8 g/dl (3.4-5.0); ALK PHOS 102 U/L (45-117); ANION GAP 8 MMOL/L (8-16); BILIRUBIN,TOTAL 0.8 mg/dL (0.2-1); BLOOD UREA NITROGEN 8 mg/dL (7-18); CALCIUM 7.5 mg/dL (8.5-10.1); CHLORIDE 107 mmol/L (98-107); CO2 24 mmol/L (21-32); CREATININE 0.6 mg/dL (0.55-1.3); GLUCOSE,RANDOM 115 mg/dL (74-106); MAGNESIUM 1.7 mg/dL (1.8-2.4); POTASSIUM 3.7 mmol/L (3.5-5.1); SGOT/AST 31 U/L (15-37); SGPT/ALT 36 U/L (13-61); SODIUM 139 mmol/L (136-145); TOT PROT 7.4 g/dl (6.4-8.2)
[2018-03-07 12:00] LABS: ANISOCYTOSIS 1+; MACROCYTOSIS 0; PLATELET ESTIMATE DECREASED; TARGET CELLS 1+
[2018-03-07 12:48] LABS: WHITE BLOOD COUNT 1.8 K/mm3 (4.0-10.0)
--- NOTE | 2018-03-07 14:07 | PN ---
Progress Note (short form) - Note Progress Note: no complaints Vital Signs Period Temp Pulse Resp BP Sys/Arias Pulse Ox Last 24 Hr 97.6 F-98.1 F 80-105 18-20 107-122/59-70 100 cor-rrr llungs clear abd soft,nt no edema rash drying CBC, BMP 03/07/18 06:45 03/07/18 06:45 Microbiology 03/02/18 06:05 Blood - Peripheral Venous Blood Culture - Final NO GROWTH AFTER 5 DAYS INCUBATION 03/02/18 06:00 Blood - Peripheral Venous Blood Culture - Final NO GROWTH AFTER 5 DAYS INCUBATION 03/02/18 05:50 Urine - Urine Clean Catch Urine Culture - Final MRI with livercirrhosis, portal htn and splenomegaly a/p varicella resolving- day #6 of 7 valtrex lesions are scabbing pancytopenia- leukopenia persists hopefully will resolve with resolution of viral illness liver cirrhosis noted, hep serologies noted pancreatitis clinically resolving ?secondary to varicella continue isolation PMD Dr Nora Kat [address] [place] tel [phone] fax [phone] new to his care-from January 2018 labs last year wbc was 3.69 hgb- 14.9 plts 55k Problem List - Problems (1) Chicken pox Code(s): B01.9 - VARICELLA WITHOUT COMPLICATION Qualifiers: Varicella complications: without complication Qualified Code(s): B01.9 - Varicella without complication (2) Pancytopenia Code(s): D61.818 - OTHER PANCYTOPENIA (3) Pancreatitis Code(s): K85.90 - ACUTE PANCREATITIS WITHOUT NECROSIS OR INFECTION, UNSP
[2018-03-07] MEDS ORDERED: PT OWN MED DRAWER 7, Y5N ONE ×3 (15:10→20:03)
[2018-03-07] MEDS ORDERED: MAGNESIUM OXIDE 400 MG TABLET (FP) PO ONE (15:35)
--- NOTE | 2018-03-07 15:39 | PN ---
Progress Note, Physician Chief Complaint: Mr Warren says he feels fine. Denies cp, sob, n/v. - Current Medication List Current Medications: Active Medications Acetaminophen (Tylenol -) 650 mg PO Q6H PRN PRN Reason: PAIN LEVEL 1-5 Last Admin: 03/05/18 07:09 Dose: 650 mg Diphenhydramine HCl (Benadryl -) 25 mg PO Q6H PRN PRN Reason: FOR ITCHING Ibuprofen (Motrin -) 400 mg PO Q6H PRN PRN Reason: FEVER Last Admin: 03/02/18 17:44 Dose: 400 mg Insulin Aspart (Novolog Vial Sliding Scale -) 1 vial SQ ACHS [facility]; Protocol Last Admin: 03/07/18 13:02 Dose: 10 units Insulin Detemir (Levemir Vial) 21 units SQ BID JOCELINE Valacyclovir HCl (Valtrex -) 1,000 mg PO TID JOCELINE Last Admin: 03/07/18 15:14 Dose: 1,000 mg - Objective Vital Signs: Vital Signs Temperature 36.7 C 03/07/18 07:11 Pulse Rate 80 03/07/18 07:11 Respiratory Rate 20 03/07/18 07:11 Blood Pressure 122/70 03/07/18 07:11 O2 Sat by Pulse Oximetry (%) 100 03/06/18 21:00 Constitutional: Yes: Well Nourished, No Distress, Calm Cardiovascular: Yes: Regular Rate and Rhythm. No: Gallop, Murmur, Rub Respiratory: Yes: Regular, CTA Bilaterally. No: Rales, Rhonchi, Wheezes Gastrointestinal: Yes: Normal Bowel Sounds, Soft. No: Distention, Tenderness Extremities: Yes: WNL Edema: No Labs: CBC, BMP 03/07/18 06:45 03/07/18 06:45 INR, PTT INR 1.44 (0.83-1.09) H 03/04/18 08:52 Fibrinogen 194.0 mg/dL (238-498) L 03/04/18 08:52 Problem List - Problems (1) Chicken pox Code(s): B01.9 - VARICELLA WITHOUT COMPLICATION Qualifiers: Varicella complications: without complication Qualified Code(s): B01.9 - Varicella without complication (2) Pancreatitis Code(s): K85.90 - ACUTE PANCREATITIS WITHOUT NECROSIS OR INFECTION, UNSP (3) Pancytopenia Code(s): D61.818 - OTHER PANCYTOPENIA (4) Diabetes Code(s): E11.9 - TYPE 2 DIABETES MELLITUS WITHOUT COMPLICATIONS (5) Cholecystitis Code(s): K81.9 - CHOLECYSTITIS, UNSPECIFIED Assessment/Plan (1) Chicken pox Assessment/Plan: -case d/w Dr James -change to oral valtrex Code(s): B01.9 - VARICELLA WITHOUT COMPLICATION Qualifiers: Varicella complications: without complication Qualified Code(s): B01.9 - Varicella without complication (2) Pancreatitis Assessment/Plan: -case d/w GI -suspect secondary to varicella -tolerating diabetic diet -pending MRCP Code(s): K85.90 - ACUTE PANCREATITIS WITHOUT NECROSIS OR INFECTION, UNSP (3) Pancytopenia Assessment/Plan: -with significant leukopenia -hematology following -recheck in am to see if improving -? if safe to d/c with low WBC count, will d/w hematology Code(s): D61.818 - OTHER PANCYTOPENIA (4) Diabetes Assessment/Plan: -change levemir to 21 units bid -monitor for improvement Code(s): E11.9 - TYPE 2 DIABETES MELLITUS WITHOUT COMPLICATIONS (5) Cirrhosis Assessment/Plan: -seen on MRCP -GI following -outpatient evaluation for possible transplant Code(s): K81.9 - CHOLECYSTITIS, UNSPECIFIED
--- NOTE | 2018-03-07 21:35 | PN ---
Progress Note (short form) - Note Progress Note: Patient seen and examined Last Vital Signs Temp Pulse Resp BP Pulse Ox 98.1 F 80 25 H 120/80 100 03/07/18 20:36 03/07/18 20:36 03/07/18 20:54 03/07/18 20:54 03/07/18 20:37 Lungs -clear Cor-RSR Abd-soft skin- scabbing varicella lesions CBC, BMP 03/07/18 06:45 03/07/18 06:45 Current Medications Generic Name Dose Route Start Last Admin Trade Name Freq PRN Reason Stop Dose Admin Acetaminophen 650 mg 03/02/18 04:26 03/05/18 07:09 Tylenol - PO 650 mg Q6H PRN Administration PAIN LEVEL 1-5 Diphenhydramine HCl 25 mg 03/02/18 04:31 Benadryl - PO Q6H PRN FOR ITCHING Ibuprofen 400 mg 03/02/18 17:32 03/02/18 17:44 Motrin - PO 400 mg Q6H PRN Administration FEVER Insulin Aspart 1 vial 03/02/18 07:00 03/07/18 21:12 Novolog Vial Sliding Scale - SQ 8 units ACHS JOCELINE Administration Protocol Insulin Detemir 21 units 03/07/18 22:00 03/07/18 21:11 Levemir Vial SQ 21 units BID JOCELINE Administration Valacyclovir HCl 1,000 mg 03/07/18 06:00 03/07/18 21:12 Valtrex - PO 1,000 mg TID JOCELINE Administration (Impression: Varicella - completing hterapy pancreatitis- resolving pancytopenia Cirrhosis Portal hypersplenism Hypersplenism Presumed cbc abnormalities are related to suppression from recent infection and pancreatitis. with superimposed liver disease and hypersplenism . Platelets are slowly trending upward- not so for WBC. Would observe somewhat longer and if no WBC recovery, may have to consider bone marrow to clarify if hypersplenism or other etiologies are paramount.
[2018-03-07] MEDS ORDERED: INSULIN (LEVEMIR) 100 UNITS/ML UNITS SQ SCH (22:00)
[2018-03-08] MEDS: valACYclovir HCL 500 MG TABLET (FP) PO SCH ×3 (05:50→22:32)
[2018-03-08] MEDS: INSULIN SLIDING SCALE (NOVOLOG) 1 VIAL SQ SCH ×4 (06:01→22:32)
[2018-03-08] MEDS: INSULIN (LEVEMIR) 100 UNITS/ML UNITS SQ SCH ×2 (08:20→22:32)
[2018-03-08 09:06] LABS: BASO % 0.9 % (0-2.0); EOS % 0.4 % (0-4.5); HEMATOCRIT 27.6 % (35.4-49); HEMOGLOBIN 8.4 GM/dL (11.7-16.9); LYMPH % 26.3 % (8-40); MCH 23.1 pg (25.7-33.7); MCHC 30.4 g/dl (32.0-35.9); MEAN PLT VOLUME 9.8 fl (7.5-11.1); MONO % 11.4 % (3.8-10.2); PLATELET COUNT 61 K/MM3 (134-434); RBC 3.64 M/mm3 (4.00-5.60); RDW 17.5 % (11.9-15.9)
[2018-03-08 10:13] LABS: ALBUMIN 2.9 g/dl (3.4-5.0); ALK PHOS 106 U/L (45-117); ANION GAP 8 MMOL/L (8-16); BILIRUBIN,DIRECT 0.3 mg/dL (0.0-0.2); BILIRUBIN,TOTAL 0.9 mg/dL (0.2-1); BLOOD UREA NITROGEN 10 mg/dL (7-18); CALCIUM 7.7 mg/dL (8.5-10.1); CHLORIDE 107 mmol/L (98-107); CO2 24 mmol/L (21-32); CREATININE 0.6 mg/dL (0.55-1.3); GLUCOSE,RANDOM 125 mg/dL (74-106); MAGNESIUM 1.8 mg/dL (1.8-2.4); POTASSIUM 4.1 mmol/L (3.5-5.1); SGOT/AST 38 U/L (15-37); SGPT/ALT 38 U/L (13-61); SODIUM 138 mmol/L (136-145); TOT PROT 7.5 g/dl (6.4-8.2)
[2018-03-08] MEDS ORDERED: INSULIN (NOVOLOG) ASPART 100 UNITS/ML 10ML VIAL ONE ×2 (11:22→19:04)
[2018-03-08] MEDS ORDERED: PT OWN MED DRAWER 7, Y5N ONE ×2 (13:48→22:28)
--- NOTE | 2018-03-08 14:56 | PN ---
Progress Note, Physician Chief Complaint: Mr Warren is without complaint. Says he is feeling well. Denies cp, sob, n/v. Eager to go home. - Current Medication List Current Medications: Active Medications Acetaminophen (Tylenol -) 650 mg PO Q6H PRN PRN Reason: PAIN LEVEL 1-5 Last Admin: 03/05/18 07:09 Dose: 650 mg Diphenhydramine HCl (Benadryl -) 25 mg PO Q6H PRN PRN Reason: FOR ITCHING Ibuprofen (Motrin -) 400 mg PO Q6H PRN PRN Reason: FEVER Last Admin: 03/02/18 17:44 Dose: 400 mg Insulin Aspart (Novolog Vial Sliding Scale -) 1 vial SQ ACHS [facility]; Protocol Last Admin: 03/08/18 11:46 Dose: 4 units Insulin Detemir (Levemir Vial) 21 units SQ BID@0700,2200 [facility] Last Admin: 03/08/18 08:20 Dose: 21 units Valacyclovir HCl (Valtrex -) 1,000 mg PO TID [facility] Last Admin: 03/08/18 13:53 Dose: 1,000 mg - Objective Vital Signs: Vital Signs Temperature 36.8 C 03/08/18 10:00 Pulse Rate 90 03/08/18 10:00 Respiratory Rate 20 03/08/18 10:00 Blood Pressure 110/70 03/08/18 10:00 O2 Sat by Pulse Oximetry (%) 100 03/08/18 09:00 Constitutional: Yes: Well Nourished, No Distress, Calm Cardiovascular: Yes: Regular Rate and Rhythm. No: Gallop, Murmur, Rub Respiratory: Yes: Regular, CTA Bilaterally. No: Rales, Rhonchi, Wheezes Gastrointestinal: Yes: Normal Bowel Sounds, Soft. No: Distention, Tenderness Extremities: Yes: WNL Edema: No Labs: CBC, BMP 03/08/18 08:22 03/08/18 08:22 INR, PTT INR 1.44 (0.83-1.09) H 03/04/18 08:52 Fibrinogen 194.0 mg/dL (238-498) L 03/04/18 08:52 Problem List - Problems (1) Chicken pox Code(s): B01.9 - VARICELLA WITHOUT COMPLICATION Qualifiers: Varicella complications: without complication Qualified Code(s): B01.9 - Varicella without complication (2) Pancreatitis Code(s): K85.90 - ACUTE PANCREATITIS WITHOUT NECROSIS OR INFECTION, UNSP (3) Pancytopenia Code(s): D61.818 - OTHER PANCYTOPENIA (4) Diabetes Code(s): E11.9 - TYPE 2 DIABETES MELLITUS WITHOUT COMPLICATIONS (5) Cholecystitis Code(s): K81.9 - CHOLECYSTITIS, UNSPECIFIED Assessment/Plan (1) Chicken pox Assessment/Plan: -case d/w Dr James -continue oral varicella Code(s): B01.9 - VARICELLA WITHOUT COMPLICATION Qualifiers: Varicella complications: without complication Qualified Code(s): B01.9 - Varicella without complication (2) Pancreatitis Assessment/Plan: -reslved Code(s): K85.90 - ACUTE PANCREATITIS WITHOUT NECROSIS OR INFECTION, UNSP (3) Pancytopenia Assessment/Plan: -leukopenia slightly improved today -hematology following -plan for discharge when cleared -await further recommendations Code(s): D61.818 - OTHER PANCYTOPENIA (4) Diabetes Assessment/Plan: -continue levemir 21 units bid -monitor if glucose is better controlled Code(s): E11.9 - TYPE 2 DIABETES MELLITUS WITHOUT COMPLICATIONS (5) Cirrhosis Assessment/Plan: -serologies for PBC pending -GI referral to transplant clinic when discharged -further workup as an outpatient Code(s): K81.9 - CHOLECYSTITIS, UNSPECIFIED
--- NOTE | 2018-03-08 15:57 | PN ---
Progress Note (short form) - Note Progress Note: no complaints Vital Signs Period Temp Pulse Resp BP Sys/Arias Pulse Ox Last 24 Hr 98.1 F-98.4 F 70-90 18-25 94-120/40-80 100-100 cor-rrr lung clear abd soft ext no edema skin scabbed CBC, BMP 03/08/18 08:22 03/08/18 08:22 MRI with livercirrhosis, portal htn and splenomegaly a/p varicella resolving- day #7 of 7 valtrex lesions are scabbing d/c isolation in am pancytopenia- leukopenia persists hopefully will resolve with resolution of viral illness repeat cbc in am liver cirrhosis noted, hep serologies noted-GI f/u pancreatitis clinically resolved ?secondary to varicella continue isolation PMD Dr Nora Berry[address] [facility] tel [phone] fax [phone] new to his care-from January 2018 labs last year wbc was 3.69 hgb- 14.9 plts 55k Problem List - Problems (1) Chicken pox Code(s): B01.9 - VARICELLA WITHOUT COMPLICATION Qualifiers: Varicella complications: without complication Qualified Code(s): B01.9 - Varicella without complication (2) Pancytopenia Code(s): D61.818 - OTHER PANCYTOPENIA (3) Pancreatitis Code(s): K85.90 - ACUTE PANCREATITIS WITHOUT NECROSIS OR INFECTION, UNSP
--- NOTE | 2018-03-08 16:45 | PATH ---
Surgical Pathology Report Patient Name: ESPERANZA COPE Med. Rec. #: [id number] /Age/Gender: 1980 (Age: 37) / M Account: [id number] Location: [facility] MED/SURG Taken: 03/02/2018 Received: 03/02/2018 Reported: 03/08/2018 Physicians: Scarlet Lyons M.D. Specimen(s) Received 2 GREEN TOP TUBES Clinical History Pancytopenia Final Diagnosis COMPREHENSIVE FLOW CYTOMETRY performed and interpreted at [facility], [place], [place] ([id number]) shows INTERPRETATION : No atypical flow cytometric findings. See [facility] report for additional details ([id number]). Electronically Signed Paris Wing M.D. Gross Description Received are 2 green top tubes of peripheral blood which are sent to [facility]. /03/02/2018 saudi03/02/2018
--- NOTE | 2018-03-08 16:47 | PN ---
GI Progress Note Subjective: No acute events No abdominal pain Still on isolation - Objective Vital Signs: Vital Signs Temperature 98.4 F 03/08/18 15:51 Pulse Rate 84 03/08/18 15:51 Respiratory Rate 18 03/08/18 15:51 Blood Pressure 118/70 03/08/18 15:51 O2 Sat by Pulse Oximetry (%) 100 03/08/18 09:00 Constitutional: Calm Eyes: No: Sclera Icterus Cardiovascular: Yes: Regular Rate and Rhythm Respiratory: Yes: CTA Bilaterally Gastrointestinal Inspection: No: Distention ...Auscultate: Yes: Normoactive Bowel Sounds ...Palpate: Yes: Splenomegaly ...Percussion: No: Tympanitic Edema: No (No LE edema) Neurological: Yes: Alert Labs: CBC, BMP 03/08/18 08:22 03/08/18 08:22 INR, PTT INR 1.44 (0.83-1.09) H 03/04/18 08:52 Fibrinogen 194.0 mg/dL (238-498) L 03/04/18 08:52 Hepatic Panel Total Bilirubin 0.9 mg/dL (0.2-1) 03/08/18 08:22 Direct Bilirubin 0.3 mg/dL (0.0-0.2) H 03/08/18 08:22 AST 38 U/L (15-37) H 03/08/18 08:22 ALT 38 U/L (13-61) 03/08/18 08:22 Alkaline Phosphatase 106 U/L (45-117) 03/08/18 08:22 Albumin 2.9 g/dl (3.4-5.0) L 03/08/18 08:22 Problem List - Problems (1) Portal hypertension Assessment/Plan: Will need continued serologic work-up. Eval at liver xplant center. In works arranging follow-up at the [facility]. Advised complete alcohol cessation. Other recommendations per previous follow- up note Code(s): K76.6 - PORTAL HYPERTENSION (2) Pancytopenia Assessment/Plan: Will need EGD / colonoscopy when neutropenia allows. Heme evaluation in progress: possible bone marrow biopsy Code(s): D61.818 - OTHER PANCYTOPENIA
--- NOTE | 2018-03-08 18:14 | PN ---
Progress Note (short form) - Note Progress Note: No atypical flowcytometric findings pancytopenia --viral illness in a cirrhotic patient will need to monitor CBC clsoely as outpatient and further w/u based on clinical course if needed
[2018-03-08] MEDS ORDERED: INSULIN (LEVEMIR) 100 UNITS/ML UNITS SQ ONE (19:04)
[2018-03-09] MEDS: INSULIN SLIDING SCALE (NOVOLOG) 1 VIAL SQ SCH (06:50)
[2018-03-09] MEDS: valACYclovir HCL 500 MG TABLET (FP) PO SCH (06:50)
[2018-03-09] MEDS: INSULIN (LEVEMIR) 100 UNITS/ML UNITS SQ SCH (06:51)
[2018-03-09 07:08] VITALS: TEMP 97.8
[2018-03-09 08:35] LABS: BASO % 1.4 % (0-2.0); EOS % 0.4 % (0-4.5); HEMOGLOBIN 8.4 GM/dL (11.7-16.9); LYMPH % 25.5 % (8-40); MCH 23.7 pg (25.7-33.7); MCHC 31.3 g/dl (32.0-35.9); MEAN CELL VOLUME 75.6 fl (80-96); MEAN PLT VOLUME 9.3 fl (7.5-11.1); MONO % 13.1 % (3.8-10.2); NEUT % 59.6 % (42.8-82.8); PLATELET COUNT 68 K/MM3 (134-434); RBC 3.57 M/mm3 (4.00-5.60); RDW 17.2 % (11.9-15.9)
[2018-03-09 08:50] LABS: ANION GAP 7 MMOL/L (8-16); BLOOD UREA NITROGEN 13 mg/dL (7-18); CALCIUM 7.9 mg/dL (8.5-10.1); CHLORIDE 108 mmol/L (98-107); CO2 25 mmol/L (21-32); CREATININE 0.7 mg/dL (0.55-1.3); GLUCOSE,RANDOM 111 mg/dL (74-106); MAGNESIUM 1.9 mg/dL (1.8-2.4); PHOSPHOROUS 4.1 mg/dL (2.5-4.9); POTASSIUM 3.8 mmol/L (3.5-5.1); SODIUM 139 mmol/L (136-145)
--- NOTE | 2018-03-09 10:27 | DS ---
Physical Examination Vital Signs: Vital Signs Temperature 36.6 C 03/09/18 07:07 Pulse Rate 73 03/09/18 07:07 Respiratory Rate 20 03/09/18 07:07 Blood Pressure 108/62 03/09/18 07:07 O2 Sat by Pulse Oximetry (%) 100 03/08/18 09:00 Constitutional: Yes: Well Nourished, No Distress, Calm Cardiovascular: Yes: Regular Rate and Rhythm. No: Gallop, Murmur, Rub Respiratory: Yes: Regular, CTA Bilaterally. No: Rales, Rhonchi, Wheezes Gastrointestinal: Yes: Normal Bowel Sounds, Soft. No: Distention, Tenderness Extremities: Yes: WNL Edema: No Labs: CBC, BMP 03/09/18 08:15 03/09/18 08:15 Discharge Summary Reason For Visit: VARICELLA Current Active Problems Chicken pox (Acute) Cholecystitis (Acute) Diabetes (Acute) Pancreatitis (Acute) Pancytopenia (Acute) Portal hypertension (Acute) Hospital Course: (1) Chicken pox Code(s): B01.9 - VARICELLA WITHOUT COMPLICATION Qualifiers: Varicella complications: without complication Qualified Code(s): B01.9 - Varicella without complication (2) Pancreatitis Code(s): K85.90 - ACUTE PANCREATITIS WITHOUT NECROSIS OR INFECTION, UNSP (3) Pancytopenia Code(s): D61.818 - OTHER PANCYTOPENIA (4) Diabetes Code(s): E11.9 - TYPE 2 DIABETES MELLITUS WITHOUT COMPLICATIONS (5) Cirrhosis Code(s): K81.9 - CHOLECYSTITIS, UNSPECIFIED Mr Warren is a 37 year old male who presented with chickenpox. He was admitted and started on IV acyclovir. He was seen by ID and this was continued. He tolerated it well and was able to be transitioned to oral valcyclovir. He finished the full course. While here he was found to have pancytopenia and cirrhosis with portal hypertension. He was seen by hematology, suspected this was viral and it is currently improving. However he will need close follow up. He will also need close follow up with GI for possible transplant. He has diabetes and he was instructed to be compliant with his medications. He also needs to follow up with his PCP to adjust as necessary. Currently he is stable for discharge home. 32 minutes spent in preparation of this discharge Condition: Stable - Instructions Diet, Activity, Other Instructions: resume previous diet. Follow up with PCP in 1 week for CBC and evaluation if can safely return to work. Referrals: Nora Kat DO [Non Staff, Medical] - Disposition: HOME - Home Medications Comprehensive Discharge Medication List: Ambulatory Orders NK [No Known Home Medication] 03/01/18
[2018-03-09 10:50] VITALS: BP 110/70; PULSE 88
== END 2018-03-09 11:51 | disposition home or self-care (01) | DRG 723 ==
LOC: JER 23:11 → JERBED 03-02 03:41 → J6S 03-02 23:03 → J8W 03-03 06:14
PROVIDERS: ADMIT Internal Medicine; ATTEND Internal Medicine
DX: B01.9 Varicella without complication (principal); K55.059 Acute (reversible) ischemia of intestine, part and extent unspecified; D61.818 Other pancytopenia; K85.90 Acute pancreatitis without necrosis or infection, unspecified; K76.6 Portal hypertension; D69.6 Thrombocytopenia, unspecified; K74.60 Unspecified cirrhosis of liver; D73.81 Neutropenic splenomegaly; D75.1 Secondary polycythemia; E11.65 Type 2 diabetes mellitus with hyperglycemia; K81.9 Cholecystitis, unspecified; Z79.84 Long term (current) use of oral hypoglycemic drugs; Z87.891 Personal history of nicotine dependence; F10.10 Alcohol abuse, uncomplicated; D72.819 Decreased white blood cell count, unspecified; E66.9 Obesity, unspecified; Z68.28 Body mass index [BMI] 28.0-28.9, adult; E78.5 Hyperlipidemia, unspecified; D63.8 Anemia in other chronic diseases classified elsewhere; K76.9 Liver disease, unspecified
CPT/HCPCS: 36415; 70450-TC; 71045-TC-FY; 74183-TC; 76700-TC; 80048; 80053; 80076; 81003; 82105; 82607; 82728; 82747; 82947; 82962; 83036; 83516; 83540; 83550; 83605; 83615; 83690; 83735; 84100; 84439; 84443; 84478; 85014; 85025; 85384; 85610; 85651; 85730; 86038; 86140; 86702; 86704; 86706; 86708; 86787; 86803; 87040; 87086; 87340; 87389; 88300-TC; 99285-25; J7030

== ENCOUNTER 2019-01-05 09:28 | Emergency (ER) | payer SELFPAY, OTHER | END 2019-01-05 13:09 | disposition home or self-care (01) | LOC: JER 09:28 ==

== ENCOUNTER 2019-11-18 09:54 | Emergency (ER) | payer OTHER ==
[2019-11-18 10:05] VITALS: BMI 25.5
[2019-11-18] MEDS ORDERED: SODIUM CHLORIDE 1,000 ML IV STA (10:05)
--- NOTE | 2019-11-18 10:06 | PDOC ---
Rapid Medical Evaluation Chief Complaint: Blood Pressure Problem Time Seen by Provider: 11/18/19 10:00 Medical Evaluation: Allergies Allergy/AdvReac Type Severity Reaction Status Date / Time No Known Allergies Allergy Verified 07/16/19 13:12 11/18/19 10:01 Pt with IDDM, presents for evaluation of high blood sugars with associated lightheadedness. Reports home sugars over 300. Admits to associated nausea and vomiting. Exam: NAD, AAOx3, abdomen SNTNR Orders: DKA work up Pt to proceed to the ER for further evaluation Discharge Disposition - Diagnosis High blood sugar - Referrals - Patient Instructions - Post Discharge Activity
--- NOTE | 2019-11-18 11:29 | PDOC ---
History of Present Illness - General Chief Complaint: Blood Sugar Problem Stated Complaint: hyperglycemia Time Seen by Provider: 11/18/19 10:00 - History of Present Illness Initial Comments: Valentino Warren is a 39 y/o male with PMH significant for HTN, HLD, DM, presenting today with hyperglycemia. Reports that he checked his blood sugar today and found it to be in the 300s, when he is normally in the 100s. Reports vomiting x2 yesterday and attributes that to food poisoning. Denies vision changes, headache, lethargy. Denies dizziness/lightheadedness/LOC. Denies chest pain/shortness of breath. No abd pain/back pain/dysuria/diarrhea. No leg swelling Meds: atorvastatin, metformin Past History - Medical History Allergies/Adverse Reactions: Allergies Allergy/AdvReac Type Severity Reaction Status Date / Time No Known Allergies Allergy Verified 11/18/19 10:01 Home Medications: Ambulatory Orders Fenofibrate 54 mg PO DAILY 01/05/19 Glyburide/Metformin HCl [Glyburide-Metformin 5-500 mg] 1 each PO BID 01/05/19 Insulin Glargine,Hum.rec.anlog [Basaglar Kwikpen U-100] 20 unit SQ DAILY 01/05/19 Lisinopril [Zestril] 2.5 mg PO DAILY 01/05/19 Omeprazole 20 mg PO DAILY 01/05/19 Simvastatin 10 mg PO HS 01/05/19 Tadalafil [Cialis] 10 mg PO DAILY 01/05/19 Benzonatate [Tessalon Pearls -] 100 mg PO TID #21 capsule 07/16/19 Ipratropium Fairborn 2 spray NS BID PRN 5 Days #1 spray 07/16/19 Methylprednisolone [Medrol Dose Guy] 4 mg PO ASDIR #21 tablet 07/16/19 COPD: No Diabetes: Yes - Psycho-Social/Smoking History Smoking History: Never smoked Have you smoked in the past 12 months: No If you are a former smoker, when did you quit?: many years ago Information on smoking cessation initiated: No - Substance Abuse Hx (Audit-C & DAST Scrn) How often the patient has a drink containing alcohol: Never Score: In Men: 4 or > Positive; In Women: 3 or > Positive: 0 Screen Result (Pos requires Nsg. Audit-10AR): Negative In the last yr the pt used illegal drug/Rx for NonMed reason: No Score: Yes response is considered Positive: 0 Screen Result (Positive result requires Nsg. DAST-10): Negative Review of Systems - Review of Systems Comments:: GENERAL/CONSTITUTIONAL: No fever or chills. No weakness._ HEAD, EYES, EARS, NOSE AND THROAT: No change in vision. No change in hearing. No sore throat._ CARDIOVASCULAR: No chest pain or shortness of breath_ RESPIRATORY: Denies cough, hemoptysis_ GASTROINTESTINAL: Reports vomiting. No diarrhea or constipation._ GENITOURINARY: No dysuria, frequency, or change in urination._ MUSCULOSKELETAL: No joint or muscle swelling or pain. No neck or back pain._ SKIN: No rash_ NEUROLOGIC: No headache, vertigo, loss of consciousness, or change in strength/sensation._ ENDOCRINE: No increased thirst. No abnormal weight change_ HEMATOLOGIC/LYMPHATIC: No anemia, easy bleeding, or history of blood clots._ ALLERGIC/IMMUNOLOGIC: No hives or skin allergy._ *Physical Exam - Vital Signs Last Vital Signs Temp Pulse Resp BP Pulse Ox 97.5 F L 69 16 121/69 96 11/18/19 10:11/18/19 10:01 11/18/19 10:11/18/19 10:11/18/19 10:01 - Physical Exam GENERAL: Awake, alert, and oriented to person/place/time, in no acute distress_ HEAD: No signs of trauma, normocephalic, atraumatic _ EYES: PERRLA, EOMI, sclera anicteric, conjunctiva clear_ ENT: Hearing grossly normal, nares patent, oropharynx clear without exudates. No uvular deviation. Moist mucosa_ NECK: Normal ROM, supple, no lymphadenopathy, JVD, or masses_ LUNGS: No distress, speaks in full sentences, clear to auscultation bilaterally _ HEART: Regular rate and rhythm, normal S1 and S2, no murmurs appreciated, peripheral pulses normal and equal bilaterally._ ABDOMEN: Soft, nontender, normoactive bowel sounds. No guarding, no rebound. No masses_ EXTREMITIES: Normal inspection, Normal range of motion, no edema. No clubbing or cyanosis_ NEUROLOGICAL: Cranial nerves II through XII grossly intact. Normal speech, normal gait, no focal sensorimotor deficits _ SKIN: Warm, Dry, normal turgor, no rashes or lesions noted_ ED Treatment Course - LABORATORY CBC & Chemistry Diagram: 11/18/19 10:45 11/18/19 10:45 - ADDITIONAL ORDERS Additional order review: Laboratory Results 11/18/19 10:37 POC Glucometer 316 11/18/19 10:37 POC Glucometer 316 - Medications Given in the ED: ED Medications Discontinued Medications Generic Name Dose Route Start Last Admin Trade Name Cornelius PRN Reason Stop Dose Admin Sodium Chloride 1,000 mls @ 1,000 mls/hr 11/18/19 10:05 11/18/19 10:52 Normal Saline - IV 11/18/19 11:04 1,000 mls/hr ASDIR STA Administration Medical Decision Making - Medical Decision Making 39M hx of HTN HLD DM presenting today with hyperglycemia. -cbc, cmp -beta hydroxybutyrate 11/18/19 15:39 Labs reviewed. Laboratory Last Values WBC 3.6 K/mm3 (4.0-10.0) L 11/18/19 10:45 RBC 4.45 M/mm3 (4.00-5.60) 11/18/19 10:45 Hgb 13.5 GM/dL (11.7-16.9) 11/18/19 10:45 Hct 40.8 % (35.4-49) D 11/18/19 10:45 MCV 91.8 fl (80-96) 11/18/19 10:45 MCH 30.3 pg (25.7-33.7) D 11/18/19 10:45 MCHC 33.0 g/dl (32.0-35.9) 11/18/19 10:45 RDW 14.6 % (11.9-15.9) D 11/18/19 10:45 Plt Count 42 K/MM3 (134-434) L D 11/18/19 10:45 MPV 11.0 fl (7.5-11.1) D 11/18/19 10:45 Absolute Neuts (auto) 2.9 K/mm3 (1.5-8.0) 11/18/19 10:45 Neutrophils % 81.2 % (42.8-82.8) 11/18/19 10:45 Lymphocytes % 10.3 % (8-40) D 11/18/19 10:45 Monocytes % 7.8 % (3.8-10.2) 11/18/19 10:45 Eosinophils % 0.2 % (0-4.5) 11/18/19 10:45 Basophils % 0.5 % (0-2.0) 11/18/19 10:45 Nucleated RBC % 0 % (0-0) 11/18/19 10:45 Sodium 137 mmol/L (136-145) 11/18/19 10:45 Potassium 3.9 mmol/L (3.5-5.1) 11/18/19 10:45 Chloride 99 mmol/L (98-107) 11/18/19 10:45 Carbon Dioxide 29 mmol/L (21-32) 11/18/19 10:45 Anion Gap 9 MMOL/L (8-16) 11/18/19 10:45 BUN 13.8 mg/dL (7-18) 11/18/19 10:45 Creatinine 0.8 mg/dL (0.55-1.3) 11/18/19 10:45 Est GFR (CKD-EPI)AfAm 128.60 11/18/19 10:45 Est GFR (CKD-EPI)NonAf 110.96 11/18/19 10:45 POC Glucometer 236 UNITS (80-120) 11/18/19 15:34 Random Glucose 348 mg/dL (74-106) H 11/18/19 10:45 Calcium 8.8 mg/dL (8.5-10.1) 11/18/19 10:45 Total Bilirubin 1.8 mg/dL (0.2-1) H 11/18/19 10:45 AST 22 U/L (15-37) 11/18/19 10:45 ALT 33 U/L (13-61) 11/18/19 10:45 Alkaline Phosphatase 137 U/L (45-117) H 11/18/19 10:45 Total Protein 7.4 g/dl (6.4-8.2) 11/18/19 10:45 Albumin 3.6 g/dl (3.4-5.0) 11/18/19 10:45 Beta-Hydroxybutyrate 5.7 mg/dL (0.2-2.8) H 11/18/19 10:45 Pt given 10 mg insulin SQ. POC glucose down to 236. Pt not in DKA. Pt reassessed. States that he as a PCP he can f/u with. Plan to d/c home with PCP f/u this week. All questions answered. Strict return precautions given. Pt verbalized understanding and agreement with plan. Discharge - Discharge Information Problems reviewed: Yes Clinical Impression/Diagnosis: Hyperglycemia Condition: Improved Disposition: HOME - Admission No - Follow up/Referral Referrals: Kayla Pradhan MD [Primary Care Provider] - - Patient Discharge Instructions Patient Printed Discharge Instructions: DI for Hyperglycemia -- Adult Additional Instructions: Please make a follow up appointment with your primary care doctor this week (referral provided here). Please continue taking your medications as prescribed. If you experience any new, worsening, or concerning symptoms, including nausea, vomiting, vision changes, or any other concerns, please return to the emergency department. Zaynab caleb joby de seguimiento con michael mdico de atencin primaria esta semana (se proporciona caleb referencia aqu). Contine tomando janeth medicamentos segn lo recetado. Si experimenta algn sntoma nuevo, que empeora o preocupa, randa nuseas, vmitos, cambios en la visin o cualquier otra inquietud, regrese al departamento de emergencias. - Post Discharge Activity
[2019-11-18 11:32] LABS: BASO % 0.5 % (0-2.0); EOS % 0.2 % (0-4.5); HEMATOCRIT 40.8 % (35.4-49); HEMOGLOBIN 13.5 GM/dL (11.7-16.9); LYMPH % 10.3 % (8-40); MCH 30.3 pg (25.7-33.7); MEAN CELL VOLUME 91.8 fl (80-96); MONO % 7.8 % (3.8-10.2); NEUT % 81.2 % (42.8-82.8); PLATELET COUNT 42 K/MM3 (134-434); RBC 4.45 M/mm3 (4.00-5.60); RDW 14.6 % (11.9-15.9); WHITE BLOOD COUNT 3.6 K/mm3 (4.0-10.0)
[2019-11-18 12:00] LABS: ALBUMIN 3.6 g/dl (3.4-5.0); BILIRUBIN,TOTAL 1.8 mg/dL (0.2-1); CALCIUM 8.8 mg/dL (8.5-10.1); CREATININE 0.8 mg/dL (0.55-1.3); TOT PROT 7.4 g/dl (6.4-8.2)
[2019-11-18 12:01] LABS: BLOOD UREA NITROGEN 13.8 mg/dL (7-18); POTASSIUM 3.9 mmol/L (3.5-5.1)
[2019-11-18] MEDS ORDERED: INSULIN REGULAR HUMAN 100 UNITS/ML *VIAL SQ ONE ×2 (13:27→14:25)
[2019-11-18] MEDS ORDERED: INSULIN REGULAR HUMAN 100 UNITS/ML *VIAL ONE (14:41)
--- NOTE | 2019-11-18 15:26 | PDOC ---
Attending Attestation - Resident Resident Name: Bruno Rowley - ED Attending Attestation I have performed the following: I have examined & evaluated the patient, The case was reviewed & discussed with the resident, I agree w/resident's findings & plan, Exceptions are as noted - HPI HPI: 11/18/19 15:25 39yo M hx IDDM, cirrhosis, portal hypertension and pancytopenia presents to the ED with elevated BS at home. He states his fingersticks have been in the 300s at home. Pt reports 2 episodes of NBNB emesis yesterday that he attributes to food poisoning, no emesis since and has been tolerating PO. He reports compliance with his metformin and insulin. He otherwise feels well, denies fevers, chills, headache, dizziness, focal weakness/numbness, CP, SOB, abd pain, urinary sxs, LE edema. - Physicial Exam PE: 11/18/19 15:31 Agree with resident exam - Medical Decision Making 11/18/19 15:31 39yo M hx IDDM presents to the ED with hyperglycemia DDx includes non AG hyperglycemia vs DKA vs HHS FS here in the 300s Labs with no AG Pt given 5 units SQ insulin, rpt fingerstick 311. Will give another 5 units and recheck fingerstick He remains asymptomatic and well appearing Reports he can see his PMD tomorrow for titration of his insulin He is clinically stable for DC home I discussed the physical exam findings, ancillary test results and final diagnoses with the patient. I answered all of the patient's questions. The patient was satisfied with the care received and felt comfortable with the discharge plan and treatment plan. The patient will call their primary care physician within 24 hours to arrange follow-up and will return to the Emergency Department with any new, persistent or worsening symptoms. This clinical encounter is taking place during a federal and state health care emergency attributable to the novel [place] Virus pandemic. The [employer] of the Department of Health and Human Services has declared, pursuant to the Public Health Service Act 319F-3 (42 U.S[place]C. 247d-6d), that a covered persons activities related to medical countermeasures against COVID-19 will be immune from liability under Federal and State law. Discharge - Discharge Information Problems reviewed: Yes Clinical Impression/Diagnosis: Hyperglycemia Condition: Improved Disposition: HOME - Follow up/Referral Referrals: Kayla Pradhan MD [Primary Care Provider] - - Patient Discharge Instructions Patient Printed Discharge Instructions: DI for Hyperglycemia -- Adult Additional Instructions: Please make a follow up appointment with your primary care doctor this week (referral provided here). Please continue taking your medications as prescribed. If you experience any new, worsening, or concerning symptoms, including nausea, vomiting, vision changes, or any other concerns, please return to the emergency department. Zaynab caleb joby de seguimiento con michael mdico de atencin primaria esta semana (se proporciona caleb referencia aqu). Contine tomando janeth medicamentos segn lo recetado. Si experimenta algn sntoma nuevo, que empeora o preocupa, randa nuseas, vmitos, cambios en la visin o cualquier otra inquietud, regrese al departamento de emergencias. - Post Discharge Activity
[2019-11-18 15:48] VITALS: BP 149/85; PULSE 75; TEMP 98.2
== END 2019-11-18 15:35 | disposition home or self-care (01) ==
LOC: JER 09:54
PROC: 3E0337Z Introduction of Electrolytic and Water Balance Substance into Peripheral Vein, Percutaneous Approach (ICD-10-PCS; principal; 2019-11-18)
DX: E11.65 Type 2 diabetes mellitus with hyperglycemia (principal)
CPT/HCPCS: 36415; 80053; 82010; 82962; 85025; 99285-25

== ENCOUNTER 2021-02-19 18:42 | Emergency (ER) | payer OTHER ==
[2021-02-19 19:18] VITALS: BP 121/70; PULSE 81; TEMP 97; BMI 24.0
[2021-02-19 21:08] LABS: CHLORIDE 104 mmol/L (98-107); SODIUM 137 mmol/L (136-145)
[2021-02-19 21:10] LABS: CALCIUM 8.7 mg/dL (8.5-10.1)
[2021-02-19 21:11] LABS: ALBUMIN 3.5 g/dl (3.4-5.0); ANION GAP 7 MMOL/L (8-16); BLOOD UREA NITROGEN 13.3 mg/dL (7-18); CO2 26 mmol/L (21-32)
[2021-02-19 21:14] LABS: CREATININE 0.8 mg/dL (0.55-1.3); SGOT/AST 42 U/L (15-37); SGPT/ALT 61 U/L (13-61)
[2021-02-19 21:15] LABS: BILIRUBIN,TOTAL 0.9 mg/dL (0.2-1); TOT PROT 7.1 g/dl (6.4-8.2)
[2021-02-19 21:16] LABS: ALK PHOS 176 U/L (45-117)
[2021-02-19 21:18] LABS: BASO % 1.3 % (0-2.0); EOS % 0.8 % (0-4.5); HEMATOCRIT 35.2 % (35.4-49); HEMOGLOBIN 11.8 GM/dL (11.7-16.9); LYMPH % 21.8 % (8-40); MCHC 33.6 g/dl (32.0-35.9); MEAN CELL VOLUME 80.5 fl (80-96); MEAN PLT VOLUME 9.9 fl (7.5-11.1); MONO % 9.4 % (3.8-10.2); NEUT % 66.7 % (42.8-82.8); PLATELET COUNT 45 10^3/uL (134-434); RBC 4.37 M/mm3 (4.00-5.60); RDW 14.9 % (11.9-15.9); WHITE BLOOD COUNT 2.2 K/mm3 (4.0-10.0)
[2021-02-19 21:19] LABS: GLUCOSE,RANDOM 479 mg/dL (74-106)
[2021-02-19 21:24] LABS: INR 1.38 (0.83-1.09); PROTHROMBIN TIME (PATIENT) 15.5 SEC (9.7-13.0)
[2021-02-19 21:27] LABS: ACTIVATED PTT 31.5 SECONDS (25.2-36.5)
[2021-02-19] MEDS ORDERED: Insulin (LOG) Aspart 100 UNITS/ML VIAL SQ ONE (22:02)
[2021-02-19] MEDS ORDERED: CLINDAMYCIN HCL 300 MG CAPSULE PO ONE (22:02)
[2021-02-19 22:03] LABS: ERYTHROCYTE SEDIMENTATION RATE 2 mm/hr (0-10)
[2021-02-19] MEDS ORDERED: SODIUM CHLORIDE 0.9% 500 ML INFUS.BAG IV ONE (22:04)
[2021-02-19] MEDS ORDERED: CLINDAMYCIN HCL 150 MG CAPSULE (FP) ONE (22:05)
[2021-02-20] MEDS ORDERED: Insulin (LOG) Aspart 100 UNITS/ML VIAL SQ ONE (22:02)
== END 2021-02-19 22:57 | disposition home or self-care (01) ==
LOC: JER 18:42
DX: S91.109A Unspecified open wound of unspecified toe(s) without damage to nail, initial encounter (principal)
CPT/HCPCS: 36415; 73630-TC-LT; 73630-TC-RT-FY; 80053; 82962; 85025; 85610; 85651; 85730; 86140; 99284-25